=== PATIENT | male | born 1945 | race Caucasian/White ===

== ENCOUNTER 2017-09-26 14:36 | Inpatient (IN) | payer MEDICARE, OTHER, BC ==
[~2017-09-26] VITALS: Ht 165.1 cm; Wt 57.5 kg
[2017-09-26] MEDS ORDERED: LORazepam 2 MG/ML VIAL IM ONE ×2 (15:30→16:30)
[2017-09-26] MEDS ORDERED: HALOPERIDOL LACTATE 5 MG/ML AMP IM ONE (15:30)
[2017-09-26 16:13] LABS: BASOPHIL % 0.4 % (0.0-2.0); BILIRUBIN, URINE NEG (NEG); BLOOD, URINE NEG (NEG); EOSINOPHIL % 0.2 % (0.0-4.0); GLUCOSE,URINE NEG (NEG); HEMATOCRIT 39.5 % (39.0-51.0); HEMOGLOBIN 13.3 GM/DL (13.0-17.0); KETONE, URINE 10 mg/dL (NEG); LYMPH % 11.6 % (9.0-44.0); LYMPHOCYTE # 1.2 TH/MM3 (1.0-4.8); MEAN CELL VOLUME 92.2 FL (80.0-100.0); MEAN CORPUSCULAR HGB CONC 33.6 % (32.0-36.0); MEAN PLATELET VOLUME 9.1 FL (7.0-11.0); MONO % 8.5 % (0.0-8.0); MONOCYTE # 0.9 TH/MM3 (0-0.9); MUCUS URINE FEW /lpf (OCC); NEUT % 79.3 % (16.0-70.0); NITRITE,URINE NEG (NEG); PLATELET COUNT 260 TH/MM3 (150-450); RED BLOOD COUNT 4.28 MIL/MM3 (4.50-5.90); RED CELL DISTRIBUTION WIDTH 13.7 % (11.6-17.2); URINE COLOR YELLOW (YELLW/STRAW); URINE LEUKOCYTE ESTERASE NEG (NEG); WHITE BLOOD COUNT 10.1 TH/MM3 (4.0-11.0)
--- NOTE | 2017-09-26 16:13 | PD ---
HPI Chief Complaint: Psychiatric Symptoms Time Seen by Provider: 15:17 Travel History International Travel<30 days: No Contact w/Intl Traveler<30days: No Traveled to known affect area: No History of Present Illness HPI 72 year Old male presents to the emergency department under Egan act. According to law enforcement report, ""Chantal called 911 and through the conversation he stated he had 18 guns and wanted the SWAT team to respond. He then asked the dispatcher "what would happen if I start shooting out the window at them." Mr. Stewart states that if the chief would have had coffee with him none of this would not have happened."" The patient was very disruptive and uncooperative when he first arrived. He was yelling and acting out. He was a threat to himself and his other so he was restrained. The patient was given Haldol and Ativan to calm him down. I examined him after the patient was calm. He denies suicidal or homicidal ideation. He says he has no plan to hurt anybody. He denies making the statements that were side against him. He denies auditory or visual hallucinations. His symptoms were aggravated when he called the police on Saturday night and asked them to remove a gentleman from his premises, which they did. He then saw the gentleman yesterday walking around and became upset because he was not arrested and put in fpc. Onset Saturday night. Duration 2 days. No known relieving factors. Symptoms are moderate to severe in severity. Reports history of bipolar disorder. Reports history of lung cancer and lobectomy and is seen at [facility]. Reports being in remission. No known allergies. Is no emergent medical complaints at this time. Denies chest pain, shortness of breath, abdominal pain, vomiting, change in urine or stool. No other modifying factors or associated signs and symptoms. PFSH Past Medical History Medical History: Unable to Obtain ?: Unknown Past Surgical History Surgical History: Unable to Obtain Social History Alcohol Use: No Tobacco Use: No Substance Use: No Allergies-Medications (Allergen,Severity, Reaction): Coded Allergies: No Known Allergies (Unverified , 09/26/17) Review of Systems Except as stated in HPI: all other systems reviewed are Neg Physical Exam Narrative GENERAL: Well-nourished, well-developed male patient, in no acute distress SKIN: Warm and dry. HEAD: Atraumatic. Normocephalic. EYES: Pupils equal and round. ENT: Mucosa pink and moist. NECK: Supple. Trachea midline. CARDIOVASCULAR: Regular rate and rhythm. No murmur appreciated. RESPIRATORY: No accessory muscle use. Clear to auscultation. Breath sounds equal bilaterally. GASTROINTESTINAL: Abdomen soft, non-tender, nondistended. Hepatic and splenic margins not palpable. Bowel sounds are active 4 quadrants. MUSCULOSKELETAL: No obvious deformities. No clubbing. No cyanosis. No edema. NEUROLOGICAL: Awake and alert. Oriented 4. No obvious cranial nerve deficits. Motor grossly within normal limits. Normal speech. Moves all extremities. 5/5 strength to all extremities. PSYCHIATRIC: No delusional thought processes. No hallucinations. Data Data Last Documented VS Vital Signs Date Time Temp Pulse Resp B/P (MAP) Pulse Ox O2 Delivery O2 Flow Rate FiO2 09/26/17 17:15 75 16 182/92 (122) 98 Orders Orders Complete Blood Count With Diff (09/26/17 15:18) Comprehensive Metabolic Panel (09/26/17 15:18) Urinalysis - C+S If Indicated (09/26/17 15:18) Psych Screen (09/26/17 15:18) Drug Screen, Random Urine (09/26/17 15:18) Alcohol (Ethanol) (09/26/17 15:18) Salicylates (Aspirin) (09/26/17 15:18) Tylenol (Acetaminophen) (09/26/17 15:18) Haloperidol Inj (Haldol Inj) (09/26/17 15:30) Lorazepam Inj (Ativan Inj) (09/26/17 15:30) Restraints Violent (09/26/17 16:11) Lorazepam Inj (Ativan Inj) (09/26/17 16:30) Potassium Chloride (Kcl) (09/26/17 17:30) Ct Brain W/O Iv Contrast(Rout) (09/26/17 ) Labs Laboratory Tests Test 09/26/17 15:45 White Blood Count 10.1 TH/MM3 Red Blood Count 4.28 MIL/MM3 Hemoglobin 13.3 GM/DL Hematocrit 39.5 % Mean Corpuscular Volume 92.2 FL Mean Corpuscular Hemoglobin 31.0 PG Mean Corpuscular Hemoglobin Concent 33.6 % Red Cell Distribution Width 13.7 % Platelet Count 260 TH/MM3 Mean Platelet Volume 9.1 FL Neutrophils (%) (Auto) 79.3 % Lymphocytes (%) (Auto) 11.6 % Monocytes (%) (Auto) 8.5 % Eosinophils (%) (Auto) 0.2 % Basophils (%) (Auto) 0.4 % Neutrophils # (Auto) 8.0 TH/MM3 Lymphocytes # (Auto) 1.2 TH/MM3 Monocytes # (Auto) 0.9 TH/MM3 Eosinophils # (Auto) 0.0 TH/MM3 Basophils # (Auto) 0.0 TH/MM3 CBC Comment DIFF FINAL Differential Comment Urine Color YELLOW Urine Turbidity CLEAR Urine pH 5.0 Urine Specific [place] 1.022 Urine Protein TRACE mg/dL Urine Glucose (UA) NEG mg/dL Urine Ketones 10 mg/dL Urine Occult Blood NEG Urine Nitrite NEG Urine Bilirubin NEG Urine Urobilinogen LESS THAN 2.0 MG/DL Urine Leukocyte Esterase NEG Urine RBC 1 /hpf Urine WBC 1 /hpf Urine Mucus FEW /lpf Microscopic Urinalysis Comment CULT NOT INDICATED Blood Urea Nitrogen 31 MG/DL Creatinine 1.27 MG/DL Random Glucose 175 MG/DL Total Protein 7.6 GM/DL Albumin 3.9 GM/DL Calcium Level 9.2 MG/DL Alkaline Phosphatase 43 U/L Aspartate Amino Transf (AST/SGOT) 27 U/L Alanine Aminotransferase (ALT/SGPT) 21 U/L Total Bilirubin 0.8 MG/DL Sodium Level 139 MEQ/L Potassium Level 3.2 MEQ/L Chloride Level 105 MEQ/L Carbon Dioxide Level 25.4 MEQ/L Anion Gap 9 MEQ/L Estimat Glomerular Filtration Rate 56 ML/MIN Salicylates Level LESS THAN 1.7 MG/DL Urine Opiates Screen NEG Acetaminophen Level LESS THAN 2.0 MCG/ML Urine Barbiturates Screen NEG Urine Amphetamines Screen NEG Urine Benzodiazepines Screen NEG Urine Cocaine Screen NEG Urine Cannabinoids Screen POS Ethyl Alcohol Level LESS THAN 3 MG/DL [facility] Medical Decision Making Medical Screen Exam Complete: Yes Emergency Medical Condition: Yes Medical Record Reviewed: Yes Differential Diagnosis Homicidal threat, homicidal ideation, psychosis, medical clearance for psychiatric admission Narrative Course Patient presents under a Egan act. Physical examination and vital signs are essentially unremarkable. Patient has no medical complaints to report. Psych screen has been ordered. If the laboratory results are unremarkable, the patient will be medically cleared for psychiatric evaluation and disposition. 1612: Patient is out in the hallway yelling at the nurse. He's been disruptive and combative. He is a threat to himself and others. He is being uncooperative. The patient will be restrained at this time and Haldol and Ativan will be administered. Restraints ordered. 1735: Patient is restrained that and calm. The patient's medical record and he has never been seen here in [place]. I do not know if his current state of mind is normal for him. Patient is alert and oriented 4. CT head ordered to rule out acute findings. Diagnosis Primary Impression: Medical clearance for psychiatric admission Condition: Stable Gabi Andrews Sep 26, 2017 16:13
[2017-09-26 16:51] LABS: ALBUMIN 3.9 GM/DL (3.4-5.0); ALKALINE PHOSPHATASE 43 U/L (45-117); ALT (GPT) 21 U/L (12-78); AST (GOT) 27 U/L (15-37); BICARBONATE 25.4 MEQ/L (21.0-32.0); BLOOD UREA NITROGEN 31 MG/DL (7-18); CALCIUM 9.2 MG/DL (8.5-10.1); CHLORIDE 105 MEQ/L (98-107); CREATININE 1.27 MG/DL (0.60-1.30); GLOMERULAR FILTRATION RATE 56 ML/MIN (>89); GLUCOSE,RANDOM 175 MG/DL (74-106); SODIUM (NA) 139 MEQ/L (136-145); TOTAL BILIRUBIN ADULT 0.8 MG/DL (0.2-1.0); TOTAL PROTEIN 7.6 GM/DL (6.4-8.2)
[2017-09-26 16:53] LABS: ACETAMINOPHEN LESS THAN 2.0 MCG/ML (10.0-30.0)
--- NOTE | 2017-09-26 16:59 | PD ---
Data Data Orders Orders Complete Blood Count With Diff (09/26/17 15:18) Comprehensive Metabolic Panel (09/26/17 15:18) Urinalysis - C+S If Indicated (09/26/17 15:18) Psych Screen (09/26/17 15:18) Drug Screen, Random Urine (09/26/17 15:18) Alcohol (Ethanol) (09/26/17 15:18) Salicylates (Aspirin) (09/26/17 15:18) Tylenol (Acetaminophen) (09/26/17 15:18) Haloperidol Inj (Haldol Inj) (09/26/17 15:30) Lorazepam Inj (Ativan Inj) (09/26/17 15:30) Restraints Violent (09/26/17 16:11) Lorazepam Inj (Ativan Inj) (09/26/17 16:30) Labs Laboratory Tests Test 09/26/17 15:45 White Blood Count 10.1 TH/MM3 Red Blood Count 4.28 MIL/MM3 Hemoglobin 13.3 GM/DL Hematocrit 39.5 % Mean Corpuscular Volume 92.2 FL Mean Corpuscular Hemoglobin 31.0 PG Mean Corpuscular Hemoglobin Concent 33.6 % Red Cell Distribution Width 13.7 % Platelet Count 260 TH/MM3 Mean Platelet Volume 9.1 FL Neutrophils (%) (Auto) 79.3 % Lymphocytes (%) (Auto) 11.6 % Monocytes (%) (Auto) 8.5 % Eosinophils (%) (Auto) 0.2 % Basophils (%) (Auto) 0.4 % Neutrophils # (Auto) 8.0 TH/MM3 Lymphocytes # (Auto) 1.2 TH/MM3 Monocytes # (Auto) 0.9 TH/MM3 Eosinophils # (Auto) 0.0 TH/MM3 Basophils # (Auto) 0.0 TH/MM3 CBC Comment DIFF FINAL Differential Comment Urine Color YELLOW Urine Turbidity CLEAR Urine pH 5.0 Urine Specific [place] 1.022 Urine Protein TRACE mg/dL Urine Glucose (UA) NEG mg/dL Urine Ketones 10 mg/dL Urine Occult Blood NEG Urine Nitrite NEG Urine Bilirubin NEG Urine Urobilinogen LESS THAN 2.0 MG/DL Urine Leukocyte Esterase NEG Urine RBC 1 /hpf Urine WBC 1 /hpf Urine Mucus FEW /lpf Microscopic Urinalysis Comment CULT NOT INDICATED Blood Urea Nitrogen 31 MG/DL Creatinine 1.27 MG/DL Random Glucose 175 MG/DL Total Protein 7.6 GM/DL Albumin 3.9 GM/DL Calcium Level 9.2 MG/DL Alkaline Phosphatase 43 U/L Aspartate Amino Transf (AST/SGOT) 27 U/L Alanine Aminotransferase (ALT/SGPT) 21 U/L Total Bilirubin 0.8 MG/DL Sodium Level 139 MEQ/L Potassium Level 3.2 MEQ/L Chloride Level 105 MEQ/L Carbon Dioxide Level 25.4 MEQ/L Anion Gap 9 MEQ/L Estimat Glomerular Filtration Rate 56 ML/MIN Salicylates Level LESS THAN 1.7 MG/DL Urine Opiates Screen NEG Acetaminophen Level LESS THAN 2.0 MCG/ML Urine Barbiturates Screen NEG Urine Amphetamines Screen NEG Urine Benzodiazepines Screen NEG Urine Cocaine Screen NEG Urine Cannabinoids Screen POS Ethyl Alcohol Level LESS THAN 3 MG/DL MDM Supervised Visit with DYLAN: Yes Narrative Course The history, exam, and medical decision-making in the associated midlevel provider note were completed with my assistance. I reviewed and agree with the findings presented. I attest that I had a [id number] encounter with the patient on the same day, and personally performed and documented my assessment and findings in the medical record. *My assessment and Findings: This is a 72-year-old male who presents to the emergency department disorganized, manic, under a Egan act. Patient was combative with staff, unable to be verbally de-escalate and ultimately required restraints and IM chemical sedation. Patient will be evaluated by psychiatry. Neida Hurd MD Sep 26, 2017 16:59
[2017-09-26 17:15] VITALS: BP 182/92; PULSE 75; RESP 16; O2SAT 98
[2017-09-26] MEDS ORDERED: POTASSIUM CHLORIDE 20 MEQ CONTROLLED RELEASE TAB PO ONE (17:30)
--- NOTE | 2017-09-26 19:21 | RADRPT ---
EXAM DATE/TIME: 09/26/2017 19:07 [place] COMPARISON: No previous studies available for comparison. INDICATIONS : Altered mental status. RADIATION DOSE: 56.35 CTDIvol (mGy) MEDICAL HISTORY : None SURGICAL HISTORY : None. ENCOUNTER: Initial ACUITY: 1 day PAIN SCALE: 0/10 LOCATION: cranial TECHNIQUE: Multiple contiguous axial images were obtained of the head. Using automated exposure control and adj ustment of the mA and/or kV according to patient size, radiation dose was kept as low as reasonably a chievable to obtain optimal diagnostic quality images. DICOM format image data is available electro nically for review and comparison. FINDINGS: CEREBRUM: The ventricles are normal for age. No evidence of midline shift, mass lesion, hemorrhage or acute in farction. No extra-axial fluid collections are seen. POSTERIOR FOSSA: The cerebellum and brainstem are intact. The 4th ventricle is midline. The cerebellopontine angle i s unremarkable. EXTRACRANIAL: The visualized portion of the orbits is intact. SKULL: The calvaria is intact. No evidence of skull fracture. CONCLUSION: No acute disease. Negro Guzmán MD on September 26, 2017 at 19:16 Board Certified Radiologist. This report was verified electronically.
[2017-09-26 19:32] VITALS: TEMP 98
--- NOTE | 2017-09-26 19:33 | PD ---
Physical Exam Date Seen by Provider: Sep 26, 2017 Time Seen by Provider: 19:28 Narrative For full history and physical examination please see previous provider's notes. I assumed care of this patient at change of shift, at that time we are waiting for the CT of the brain to result. Data Data Last Documented VS Vital Signs Date Time Temp Pulse Resp B/P (MAP) Pulse Ox O2 Delivery O2 Flow Rate FiO2 09/26/17 17:15 75 16 182/92 (122) 98 Orders Orders Complete Blood Count With Diff (09/26/17 15:18) Comprehensive Metabolic Panel (09/26/17 15:18) Urinalysis - C+S If Indicated (09/26/17 15:18) Psych Screen (09/26/17 15:18) Drug Screen, Random Urine (09/26/17 15:18) Alcohol (Ethanol) (09/26/17 15:18) Salicylates (Aspirin) (09/26/17 15:18) Tylenol (Acetaminophen) (09/26/17 15:18) Haloperidol Inj (Haldol Inj) (09/26/17 15:30) Lorazepam Inj (Ativan Inj) (09/26/17 15:30) Restraints Violent (09/26/17 16:11) Lorazepam Inj (Ativan Inj) (09/26/17 16:30) Potassium Chloride (Kcl) (09/26/17 17:30) Ct Brain W/O Iv Contrast(Rout) (09/26/17 ) Labs Laboratory Tests Test 09/26/17 15:45 White Blood Count 10.1 TH/MM3 Red Blood Count 4.28 MIL/MM3 Hemoglobin 13.3 GM/DL Hematocrit 39.5 % Mean Corpuscular Volume 92.2 FL Mean Corpuscular Hemoglobin 31.0 PG Mean Corpuscular Hemoglobin Concent 33.6 % Red Cell Distribution Width 13.7 % Platelet Count 260 TH/MM3 Mean Platelet Volume 9.1 FL Neutrophils (%) (Auto) 79.3 % Lymphocytes (%) (Auto) 11.6 % Monocytes (%) (Auto) 8.5 % Eosinophils (%) (Auto) 0.2 % Basophils (%) (Auto) 0.4 % Neutrophils # (Auto) 8.0 TH/MM3 Lymphocytes # (Auto) 1.2 TH/MM3 Monocytes # (Auto) 0.9 TH/MM3 Eosinophils # (Auto) 0.0 TH/MM3 Basophils # (Auto) 0.0 TH/MM3 CBC Comment DIFF FINAL Differential Comment Urine Color YELLOW Urine Turbidity CLEAR Urine pH 5.0 Urine Specific [place] 1.022 Urine Protein TRACE mg/dL Urine Glucose (UA) NEG mg/dL Urine Ketones 10 mg/dL Urine Occult Blood NEG Urine Nitrite NEG Urine Bilirubin NEG Urine Urobilinogen LESS THAN 2.0 MG/DL Urine Leukocyte Esterase NEG Urine RBC 1 /hpf Urine WBC 1 /hpf Urine Mucus FEW /lpf Microscopic Urinalysis Comment CULT NOT INDICATED Blood Urea Nitrogen 31 MG/DL Creatinine 1.27 MG/DL Random Glucose 175 MG/DL Total Protein 7.6 GM/DL Albumin 3.9 GM/DL Calcium Level 9.2 MG/DL Alkaline Phosphatase 43 U/L Aspartate Amino Transf (AST/SGOT) 27 U/L Alanine Aminotransferase (ALT/SGPT) 21 U/L Total Bilirubin 0.8 MG/DL Sodium Level 139 MEQ/L Potassium Level 3.2 MEQ/L Chloride Level 105 MEQ/L Carbon Dioxide Level 25.4 MEQ/L Anion Gap 9 MEQ/L Estimat Glomerular Filtration Rate 56 ML/MIN Salicylates Level LESS THAN 1.7 MG/DL Urine Opiates Screen NEG Acetaminophen Level LESS THAN 2.0 MCG/ML Urine Barbiturates Screen NEG Urine Amphetamines Screen NEG Urine Benzodiazepines Screen NEG Urine Cocaine Screen NEG Urine Cannabinoids Screen POS Ethyl Alcohol Level LESS THAN 3 MG/DL [facility] Medical Record Reviewed: Yes Supervised Visit with DYLAN: No Interpretation(s) Laboratory Tests Test 09/26/17 15:45 White Blood Count 10.1 TH/MM3 Red Blood Count 4.28 MIL/MM3 Hemoglobin 13.3 GM/DL Hematocrit 39.5 % Mean Corpuscular Volume 92.2 FL Mean Corpuscular Hemoglobin 31.0 PG Mean Corpuscular Hemoglobin Concent 33.6 % Red Cell Distribution Width 13.7 % Platelet Count 260 TH/MM3 Mean Platelet Volume 9.1 FL Neutrophils (%) (Auto) 79.3 % Lymphocytes (%) (Auto) 11.6 % Monocytes (%) (Auto) 8.5 % Eosinophils (%) (Auto) 0.2 % Basophils (%) (Auto) 0.4 % Neutrophils # (Auto) 8.0 TH/MM3 Lymphocytes # (Auto) 1.2 TH/MM3 Monocytes # (Auto) 0.9 TH/MM3 Eosinophils # (Auto) 0.0 TH/MM3 Basophils # (Auto) 0.0 TH/MM3 CBC Comment DIFF FINAL Differential Comment Urine Color YELLOW Urine Turbidity CLEAR Urine pH 5.0 Urine Specific [place] 1.022 Urine Protein TRACE mg/dL Urine Glucose (UA) NEG mg/dL Urine Ketones 10 mg/dL Urine Occult Blood NEG Urine Nitrite NEG Urine Bilirubin NEG Urine Urobilinogen LESS THAN 2.0 MG/DL Urine Leukocyte Esterase NEG Urine RBC 1 /hpf Urine WBC 1 /hpf Urine Mucus FEW /lpf Microscopic Urinalysis Comment CULT NOT INDICATED Blood Urea Nitrogen 31 MG/DL Creatinine 1.27 MG/DL Random Glucose 175 MG/DL Total Protein 7.6 GM/DL Albumin 3.9 GM/DL Calcium Level 9.2 MG/DL Alkaline Phosphatase 43 U/L Aspartate Amino Transf (AST/SGOT) 27 U/L Alanine Aminotransferase (ALT/SGPT) 21 U/L Total Bilirubin 0.8 MG/DL Sodium Level 139 MEQ/L Potassium Level 3.2 MEQ/L Chloride Level 105 MEQ/L Carbon Dioxide Level 25.4 MEQ/L Anion Gap 9 MEQ/L Estimat Glomerular Filtration Rate 56 ML/MIN Salicylates Level LESS THAN 1.7 MG/DL Urine Opiates Screen NEG Acetaminophen Level LESS THAN 2.0 MCG/ML Urine Barbiturates Screen NEG Urine Amphetamines Screen NEG Urine Benzodiazepines Screen NEG Urine Cocaine Screen NEG Urine Cannabinoids Screen POS Ethyl Alcohol Level LESS THAN 3 MG/DL Vital Signs Date Time Temp Pulse Resp B/P (MAP) Pulse Ox O2 Delivery O2 Flow Rate FiO2 09/26/17 17:15 75 16 182/92 ([address] 09/26/17 0000 Signed Impressions: Service Date/Time: September 19:07 - CONCLUSION: No acute disease. Negro Guzmán MD Narrative Course CT scan of the brain is negative for acute abnormality. Temp assessed at 98.0. Patient is resting comfortably, he requested water. Patient is medically cleared for psychiatric evaluation. Diagnosis Primary Impression: Medical clearance for psychiatric admission Condition: Stable Gege Barrett Danielle JONES Sep 26, 2017 19:33
[2017-09-26] MEDS ORDERED: ASPI-516 CHEW (20:37)
[2017-09-26] MEDS ORDERED: AMLO2.5T PO (20:44)
[2017-09-26] MEDS ORDERED: CHLO25TA2 PO (20:44)
[2017-09-26] MEDS ORDERED: EZET1TAB8 PO (20:44)
[2017-09-26] MEDS ORDERED: ROSU10 PO (20:44)
[2017-09-26] MEDS ORDERED: LATA0.002 EACH EYE (20:50)
[2017-09-26] MEDS ORDERED: BENI40TA29 PO (20:50)
[2017-09-26 21:41] VITALS: BP 153/71; PULSE 61; RESP 14; O2SAT 99
[2017-09-26] MEDS ORDERED: amLODIPine BESYLATE 5 MG TAB PO SCH (21:45)
[2017-09-26] MEDS ORDERED: LORazepam 2 MG/ML VIAL - age > 65 yrs IM PRN (21:45)
[2017-09-26] MEDS ORDERED: ACETAMINOPHEN 325 MG TAB PO PRN (21:45)
[2017-09-26] MEDS ORDERED: ALUMINUM/MAGNESIUM/SIMETH 30 ML CUP PO PRN (21:45)
[2017-09-26] MEDS ORDERED: MAGNESIUM HYDROXIDE SUSP 30 ML CUP PO PRN (21:45)
[2017-09-26] MEDS ORDERED: EZETIMIBE 10 MG TAB PO SCH (21:47)
[2017-09-26] MEDS ORDERED: CHLORTHALIDONE 50 MG TAB PO SCH (21:48)
[2017-09-26] MEDS ORDERED: LOSARTAN 50 MG TAB PO SCH (21:56)
[2017-09-26] MEDS ORDERED: LATANOPROST 0.005% OPHT SOLN 2.5 ML BTL EACH EYE SCH (21:57)
[2017-09-26] MEDS ORDERED: PILL SPLITTER OTHER PRN (22:00)
[2017-09-26 22:40] VITALS: BP 143/77; PULSE 63; RESP 18; TEMP 98.2; O2SAT 99
[2017-09-27 06:03] VITALS: BP 104/53; PULSE 63; RESP 18; TEMP 97.6; O2SAT 98
[2017-09-27] MEDS ORDERED: ASPIRIN 81 MG CHEW TAB PO SCH (09:00)
[2017-09-27] MEDS ORDERED: ATORVASTATIN 20 MG TAB PO SCH ×2 (09:00→13:00)
[2017-09-27] MEDS ORDERED: MAGNESIUM HYDROXIDE SUSP 30 ML CUP PO PRN (12:00)
[2017-09-27] MEDS ORDERED: ALUMINUM/MAGNESIUM/SIMETH 30 ML CUP PO PRN (12:00)
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
--- NOTE | 2017-09-27 17:09 | HHI.PR ---
Addendum to Inpatient Note Additional Information We attempted to see patient this afternoon. Another gentleman was interviewing this patient and thus we did not get to see this patient. We reviewed this patient's chart. K+ 3.2 and was replaced. Creatinine 1.27 and Blood glucose was 175. We recommend encouraging patient to keep himself well hydrated. AM labs can be obtained on 09/28/2017 or 09/29/2017 and HgA1c can also be obtained. We will plan on seeing patient on 09/28/2017. Kb Carlisle DO Sep 27, 2017 17:08
[2017-09-27] MEDS ORDERED: ROSU10 PO (17:34)
[2017-09-27] MEDS ORDERED: CHLO25TA2 PO (17:36)
[2017-09-27] MEDS ORDERED: CO Q100C9 PO (17:38)
[2017-09-27] MEDS ORDERED: AZEL1SPR2 EACH NARE (17:39)
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
[2017-09-27 18:00] VITALS: BP 160/72; PULSE 67; RESP 18; TEMP 98; O2SAT 96
[2017-09-27] MEDS: LATANOPROST 0.005% OPHT SOLN 2.5 ML BTL EACH EYE SCH (21:00)
[2017-09-27] MEDS ORDERED: COENZYME Q10 300 MG PO SCH (21:00)
[2017-09-27] MEDS ORDERED: CHLORTHALIDONE 50 MG TAB PO SCH (21:00)
[2017-09-27] MEDS ORDERED: AZELASTINE NASAL SCH (21:00)
[2017-09-27] MEDS ORDERED: CHLORTHALIDONE 12.5 MG PO SCH (21:00)
[2017-09-27] MEDS: amLODIPine BESYLATE 5 MG TAB PO SCH (21:19)
[2017-09-27] MEDS: EZETIMIBE 10 MG TAB PO SCH (21:19)
[2017-09-27] MEDS: ATORVASTATIN 20 MG TAB PO SCH (21:20)
[2017-09-27] MEDS: LOSARTAN 50 MG TAB PO SCH (21:20)
[2017-09-28 06:33] VITALS: BP 121/57; PULSE 64; RESP 18; TEMP 97.5; O2SAT 100
[2017-09-28] MEDS: ASPIRIN 81 MG CHEW TAB CHEW SCH (08:27)
[2017-09-28] MEDS: CHLORTHALIDONE 50 MG TAB PO SCH (08:27)
[2017-09-28] MEDS ORDERED: ATORVASTATIN 20 MG TAB PO SCH (09:00)
[2017-09-28 09:11] LABS: BICARBONATE 31.2 MEQ/L (21.0-32.0); CALCIUM 10.2 MG/DL (8.5-10.1); CREATININE 1.07 MG/DL (0.60-1.30)
--- NOTE | 2017-09-28 15:17 | EKG ---
Date Performed: 09/27/2017 Time Performed: 13:14:11 PTAGE: 72 years EKG: Sinus rhythm WITH VENTRICULAR TRIGEMINY AXIS IS VERTICAL BORDERLINE ECG NO PREVIOUS TRACING DOCTOR: Andry Jeffers Interpretating Date/Time 09/28/2017 15:16:52
[2017-09-28 17:00] VITALS: BP 146/86; PULSE 68; RESP 18; TEMP 98.6; O2SAT 100
--- NOTE | 2017-09-28 18:19 | HHI.PYPN ---
Subjective Chief Complaint: patient manic with increased aggressive behavior at home confrontation with Remarks Is a request for second opinion. Admission note was reviewed and I agree with its contents. Patient was seen and case was discussed with nursing. Patient shows multiple symptoms of marla today. He is grandiose, pressured, flight of ideas, intrusive, perseverative, distractible. EKG was reviewed and QTC is 385. Mental Status Examination Appearance: Appropriate Consciousness: Alert Orientation: x4 Motor Activity: Normal gait Speech: Pressured, Rapid Language: Adequate Fund of Knowledge: Adequate Attention and Concentration: Adequate Memory: Unremarkable Mood: Irritable, Manic Affect: Other (increased range and intensity) Thought Process & Associations: Loose associations Thought Content: Other (disorganized) Hallucination Type: None (denies) Delusion Type: Other (grandiose) Suicidal Ideation: No (deny) Suicidal Plan: No Suicidal Intention: No Homicidal Ideation: No (denies) Homicidal Plan: No Homicidal Intention: No Insight: Poor Judgment: Poor Results Labs Test 09/28/17 07:25 Blood Urea Nitrogen 22 MG/DL Creatinine 1.07 MG/DL Random Glucose 100 MG/DL Calcium Level 10.2 MG/DL Sodium Level 139 MEQ/L Potassium Level 4.0 MEQ/L Chloride Level 102 MEQ/L Carbon Dioxide Level 31.2 MEQ/L Anion Gap 6 MEQ/L Estimat Glomerular Filtration Rate 68 ML/MIN Vitals/IOs Vital Signs Date Time Temp Pulse Resp B/P (MAP) Pulse Ox O2 Delivery O2 Flow Rate FiO2 09/28/17 17:00 98.6 68 18 146/86 (106) 100 09/26/17 21:41 Room Air Intake and Output 09/28/17 09/28/17 09/29/17 08:00 16:00 00:00 Intake Total 240 ml 240 ml 240 ml Balance 240 ml 240 ml 240 ml Assessment & Plan Problem List: (1) Marijuana abuse ICD Codes: F12.10 - Cannabis abuse, uncomplicated (2) Bipolar disorder, most recent episode manic ICD Codes: F31.10 - Bipolar disorder, current episode manic without psychotic features, unspecified Assessment & Plan I agree with first opinion to continue petition. Criteria include acute marla. Patient is agreeable to start medication. We will start Geodon 20 mg by mouth twice a day with food Justification for Cont. Inpt. Patient would decompensate in a less restrictive setting Request HC Surrog/Guard Advoc?: No Paulino Kendrick DO Sep 28, 2017 18:19
[2017-09-28] MEDS: LOSARTAN 50 MG TAB PO SCH (20:37)
[2017-09-28] MEDS: ZIPRASIDONE HCL 20 MG CAP PO SCH (20:37)
[2017-09-28] MEDS: EZETIMIBE 10 MG TAB PO SCH (20:37)
[2017-09-28] MEDS: amLODIPine BESYLATE 5 MG TAB PO SCH (20:37)
[2017-09-28] MEDS: LATANOPROST 0.005% OPHT SOLN 2.5 ML BTL EACH EYE SCH (21:00)
[2017-09-28] MEDS: diphenhydrAMINE HCL 50 MG CAP PO PRN (23:34)
[2017-09-29 06:00] VITALS: BP 126/62; PULSE 65; RESP 17; TEMP 97.4; O2SAT 100
[2017-09-29] MEDS: CHLORTHALIDONE 50 MG TAB PO SCH (08:26)
[2017-09-29] MEDS: ZIPRASIDONE HCL 20 MG CAP PO SCH ×2 (08:26→21:18)
[2017-09-29] MEDS: ASPIRIN 81 MG CHEW TAB CHEW SCH (08:26)
--- NOTE | 2017-09-29 13:36 | HHI.PR ---
Subjective Remarks Follow-up visit HTN, HLD, glaucoma. Patient seen and examined today laying In bed. Reports he is doing well. Concerned about his lipid profile. Discuss with patient he is already on medication Crestor switch over to atorvastatin while he is admitted to psychiatry unit. Continuous medications at home. Concerned about his appointment on the sixth. Discuss with patient that if he is going to be discharged by psychiatry M.D. that he can follow-up with me or he can reschedule that appointment. Denies chest pain, palpitations. Denies any headaches, fevers, chills, nausea, vomiting. Denies any pain or discomfort. No shortness of breath dyspnea. Objective Vitals Vital Signs Date Time Temp Pulse Resp B/P (MAP) Pulse Ox O2 Delivery O2 Flow Rate FiO2 09/29/17 06:00 97.4 65 17 126/62 (83) 100 09/28/17 17:00 98.6 68 18 146/86 (106) 100 I/O 09/28/17 09/28/17 09/28/17 09/29/17 09/29/17 09/29/17 07:00 15:00 23:00 07:00 15:00 23:00 Intake Total 0 ml 480 ml 840 ml Balance 0 ml 480 ml 840 ml Intake Oral 0 ml 480 ml 840 ml # Voids 2 1 3 Result Diagram: 09/26/17 1545 09/28/17 0725 Imaging Last Impressions Head CT 09/26/17 0000 Signed Impressions: Service Date/Time: September 19:07 - CONCLUSION: No acute disease. Negro Guzmán MD Objective Remarks GENERAL: This is a well-nourished, well-developed patient, in no apparent distress. SKIN: Cool and dry. HEAD: No temporal or scalp tenderness. EYES: Pupils equal round and reactive. Extraocular motions intact. No scleral icterus. No injection or drainage. ENT: Nose without bleeding. Throat without erythema. Uvula midline. Airway patent. NECK: Trachea midline. CARDIOVASCULAR: Regular rate and rhythm without murmurs, gallops, or rubs. RESPIRATORY: No wheezes, rales, or rhonchi. GASTROINTESTINAL: Abdomen soft, non-tender, nondistended. MUSCULOSKELETAL: Extremities without clubbing, cyanosis, or edema. NEUROLOGICAL: Awake and alert. Hyperverbal. Motor and sensory grossly within normal limits. Normal speech. A/P Problem List: (1) Bipolar disorder, most recent episode manic ICD Code: F31.10 - Bipolar disorder, current episode manic without psychotic features, unspecified Assessment and Plan Patient is a 72-year-old male with primary medical history of HTN, HLD, glaucoma came into the hospital under [place] act for threatening behavior. As per review of records, low enforcement reports "Chantal called 911 and through the conversation he stated he had 18 guns and wanted the SWAT team to respond. He then asked the dispatcher "what would happen if I start shooting out the window at them." Mr. Stewart states that if the chief would have had coffee with him none of this would not have happened." Patient is now admitted to inpatient psychiatry unit for further evaluation. Consulted for medical management. Bipolar disorder - Managed by psychiatry team - Hyperverbal, very conversant. Patient insists to take his phone number so that he can develop a provider patient relationship through text Messages. Hypertension Hyperlipidemia - Continue home medication aspirin 81 mg daily, Crestor 10 mg 3 times a week with CoQ10 enzyme daily (Atorvastatin 20mg daily), chlorthalidone 12.5 daily at bedtime, losartan 100 mg daily at bedtime, Zetia 10 mg daily at bedtime, amlodipine 2.5 mg daily at bedtime ( most of his meds have been converted for inpatient use) - states uses Crestor 3 times a week with CoQ10 enzymes to prevent him from having muscle weakness - Possible CKD, enc fluid hydration - Monitor BP trend Glaucoma - Continue eyedrops from home Hypokalemia 3.2. Replaced in ED, Repeat labs potassium 4.0 - Resolved DVT prop ambulatory Stable from Hospitalist standpoint. We will sign off. Reconsult as needed. Ray Aguilera Sep 29, 2017 13:36
--- NOTE | 2017-09-29 16:17 | HHI.PYPN ---
Subjective Chief Complaint: patient manic with increased aggressive behavior at home confrontation with Remarks Patient was seen and case discussed with nursing. Patient is started his Geodon and is tolerating it quite well. This time, there is little improvement patient remains very manic. He is pressured, hyperverbal, intrusive, and very grandiose. Asking about interactions between Geodon and the 2-3 joints he plans to smoke everyday area denies suicidal or homicidal ideation intent or plan. Denies auditory visual hallucinations Mental Status Examination Appearance: Appropriate Consciousness: Alert Orientation: x4 Motor Activity: Normal gait Speech: Pressured, Rapid Language: Adequate Fund of Knowledge: Adequate Attention and Concentration: Adequate Memory: Unremarkable Mood: Manic Affect: Labile, Other (increased range and intensity) Thought Process & Associations: Other (flight of ideas) Thought Content: Racing thoughts Hallucination Type: None (denies) Delusion Type: Other (grandiose) Suicidal Ideation: No (deny) Suicidal Plan: No Suicidal Intention: No Homicidal Ideation: No (denies) Homicidal Plan: No Homicidal Intention: No Insight: Poor Judgment: Poor Results Vitals/IOs Vital Signs Date Time Temp Pulse Resp B/P (MAP) Pulse Ox O2 Delivery O2 Flow Rate FiO2 09/29/17 06:00 97.4 65 17 126/62 (83) 100 09/26/17 21:41 Room Air Assessment & Plan Problem List: (1) Marijuana abuse ICD Codes: F12.10 - Cannabis abuse, uncomplicated (2) Bipolar disorder, most recent episode manic ICD Codes: F31.10 - Bipolar disorder, current episode manic without psychotic features, unspecified Assessment & Plan Consider increasing Geodon tomorrow Justification for Cont. Inpt. Patient will decompensate in a less restrictive setting Request HC Surrog/Guard Advoc?: No Paulino Kendrick DO Sep 29, 2017 16:17
[2017-09-29 18:40] VITALS: BP 111/58; PULSE 63; RESP 16; TEMP 98; O2SAT 98
[2017-09-29] MEDS: LATANOPROST 0.005% OPHT SOLN 2.5 ML BTL EACH EYE SCH (21:17)
[2017-09-29] MEDS: amLODIPine BESYLATE 5 MG TAB PO SCH (21:18)
[2017-09-29] MEDS: EZETIMIBE 10 MG TAB PO SCH (21:18)
[2017-09-29] MEDS: LOSARTAN 50 MG TAB PO SCH (21:18)
[2017-09-29] MEDS: diphenhydrAMINE HCL 50 MG CAP PO PRN (22:39)
[2017-09-30 06:56] LABS: CHOLESTEROL/ HDL RATIO 1.97 RATIO; HDL CHOLESTEROL 55.8 MG/DL (40.0-60.0)
[2017-09-30] MEDS: CHLORTHALIDONE 50 MG TAB PO SCH (08:37)
[2017-09-30] MEDS: ZIPRASIDONE HCL 20 MG CAP PO SCH (08:37)
[2017-09-30] MEDS: ASPIRIN 81 MG CHEW TAB CHEW SCH (08:38)
--- NOTE | 2017-09-30 16:14 | HHI.PYPN ---
Subjective Chief Complaint: patient manic with increased aggressive behavior at home confrontation with Remarks Patient seen in day room with nurse Vivek, nurse practitioner Betzaida, and medical student Adithya, patient compliant medications. Patient continues with rapid pressured speech is intrusive getting into her purse, markedly grandiose. Now only averaging complements on the department hours staff the other patient's. Will increase Geodon to 20 mg a.m. 40 mg p.m. Review of Systems Except as stated in HPI: all other systems reviewed are Neg Mental Status Examination Appearance: Appropriate Consciousness: Alert Orientation: x4 Motor Activity: Normal gait Speech: Pressured, Rapid Language: Adequate Fund of Knowledge: Adequate Attention and Concentration: Adequate Memory: Unremarkable Mood: Manic Affect: Labile, Other (increased range and intensity) Thought Process & Associations: Other (flight of ideas) Thought Content: Racing thoughts Hallucination Type: None (denies) Delusion Type: Other (grandiose) Suicidal Ideation: No (deny) Suicidal Plan: No Suicidal Intention: No Homicidal Ideation: No (denies) Homicidal Plan: No Homicidal Intention: No Insight: Poor Judgment: Poor Results Labs Test 09/30/17 05:07 Triglycerides Level 89 MG/DL Cholesterol Level 110 MG/DL LDL Cholesterol 36 MG/DL HDL Cholesterol 55.8 MG/DL Cholesterol/HDL Ratio 1.97 RATIO Vitals/IOs Vital Signs Date Time Temp Pulse Resp B/P (MAP) Pulse Ox O2 Delivery O2 Flow Rate FiO2 09/29/17 18:40 98.0 63 16 111/58 (75) 98 09/26/17 21:41 Room Air Intake and Output 09/30/17 09/30/17 10/01/17 08:00 16:00 00:00 Intake Total 550 ml 1200 ml Balance 550 ml 1200 ml Assessment & Plan Problem List: (1) Marijuana abuse ICD Codes: F12.10 - Cannabis abuse, uncomplicated (2) Bipolar disorder, most recent episode manic ICD Codes: F31.10 - Bipolar disorder, current episode manic without psychotic features, unspecified Assessment & Plan Estimated LOS: days patient continues markedly manic with rapid pressured speech she is grandiose and intrusive. She medication adjustment above Justification for Cont. Inpt. At this time patient would decompensated placed in a lower level of care Discharge Planning Probable return home with family Request HC Surrog/Guard Advoc?: No Isaiah Houston MD Sep 30, 2017 16:14
[2017-09-30 18:12] VITALS: BP 128/72; PULSE 90; RESP 18; TEMP 98; O2SAT 96
[2017-09-30] MEDS: amLODIPine BESYLATE 5 MG TAB PO SCH (21:00)
[2017-09-30] MEDS: LATANOPROST 0.005% OPHT SOLN 2.5 ML BTL EACH EYE SCH (21:00)
[2017-09-30] MEDS: ZIPRASIDONE HCL 40 MG CAP PO SCH (21:00)
[2017-09-30] MEDS: ATORVASTATIN 20 MG TAB PO SCH (21:00)
[2017-09-30] MEDS: diphenhydrAMINE HCL 50 MG CAP PO PRN (21:00)
[2017-09-30] MEDS: EZETIMIBE 10 MG TAB PO SCH (21:00)
[2017-09-30] MEDS: LOSARTAN 50 MG TAB PO SCH (21:00)
[2017-10-01 06:00] VITALS: BP 133/63; PULSE 60; RESP 18; TEMP 97.4; O2SAT 99
[2017-10-01 08:08] VITALS: BP 129/67
[2017-10-01] MEDS: ZIPRASIDONE HCL 20 MG CAP PO SCH ×2 (08:12→08:17)
[2017-10-01] MEDS: CHLORTHALIDONE 50 MG TAB PO SCH (08:12)
[2017-10-01] MEDS: ASPIRIN 81 MG CHEW TAB CHEW SCH (08:13)
[2017-10-01] MEDS: LORazepam 0.5 MG TAB age > 65 yrs PO PRN (08:13)
--- NOTE | 2017-10-01 16:29 | HHI.PYPN ---
Subjective Chief Complaint: patient manic with increased aggressive behavior at home confrontation with Remarks Patient seen in day room with nurse practitioner Betzaida, medical student Adithya, and nurse Vivek. Patient continues delusional quite manic with rapid pressured speech, intrusiveness, entitlement, and grandiosity now saying that he has to leave because he has a multimillion dollar daily needs to do. He is asking for many detailed questions related to the [place] act which I have already explained to him. He has been given also a printed copy of the effects side effects of Geodon. He shown poor compliance with medication also. Patient scheduled for [place] in 2 days Review of Systems Except as stated in HPI: all other systems reviewed are Neg Mental Status Examination Appearance: Appropriate Consciousness: Alert Orientation: x4 Motor Activity: Normal gait Speech: Pressured, Rapid Language: Adequate Fund of Knowledge: Adequate Attention and Concentration: Adequate Memory: Unremarkable Mood: Manic Affect: Labile, Other (increased range and intensity) Thought Process & Associations: Other (flight of ideas) Thought Content: Racing thoughts Hallucination Type: None (denies) Delusion Type: Other (grandiose) Suicidal Ideation: No (deny) Suicidal Plan: No Suicidal Intention: No Homicidal Ideation: No (denies) Homicidal Plan: No Homicidal Intention: No Insight: Poor Judgment: Poor Results Vitals/IOs Vital Signs Date Time Temp Pulse Resp B/P (MAP) Pulse Ox O2 Delivery O2 Flow Rate FiO2 10/01/17 08:08 129/67 (87) 10/01/17 06:00 97.4 60 18 99 Intake and Output 10/01/17 10/01/17 10/02/17 08:00 16:00 00:00 Intake Total 360 ml Balance 360 ml Assessment & Plan Problem List: (1) Marijuana abuse ICD Codes: F12.10 - Cannabis abuse, uncomplicated (2) Bipolar disorder, most recent episode manic ICD Codes: F31.10 - Bipolar disorder, current episode manic without psychotic features, unspecified Assessment & Plan Estimated LOS: days patient continues manic intrusive delusional grandiose with no insight into his disease. Now becoming somewhat noncompliant with medication Justification for Cont. Inpt. At this time patient will decompensate if placed a lower level of care Discharge Planning Placement needs to be determined Request HC Surrog/Guard Advoc?: No Isaiah Houston MD Oct 01, 2017 16:29
[2017-10-01 18:49] VITALS: BP 147/66; PULSE 89; RESP 16; TEMP 98; O2SAT 100
[2017-10-01] MEDS: ZIPRASIDONE HCL 40 MG CAP PO SCH (21:00)
[2017-10-01] MEDS: amLODIPine BESYLATE 5 MG TAB PO SCH (21:20)
[2017-10-01] MEDS: LATANOPROST 0.005% OPHT SOLN 2.5 ML BTL EACH EYE SCH (21:20)
[2017-10-01] MEDS: LOSARTAN 50 MG TAB PO SCH (21:20)
[2017-10-01] MEDS: EZETIMIBE 10 MG TAB PO SCH (21:21)
[2017-10-02 06:20] VITALS: BP 132/67; PULSE 78; RESP 20; TEMP 98.4; O2SAT 96
[2017-10-02 08:40] VITALS: BP 137/68; PULSE 95
[2017-10-02] MEDS: CHLORTHALIDONE 50 MG TAB PO SCH (08:43)
[2017-10-02] MEDS: ASPIRIN 81 MG CHEW TAB CHEW SCH (08:45)
[2017-10-02] MEDS: ZIPRASIDONE HCL 20 MG CAP PO SCH (08:45)
--- NOTE | 2017-10-02 15:55 | HHI.PYPN ---
Subjective Chief Complaint: patient manic with increased aggressive behavior at home confrontation with Remarks Patient seen in [place] with nurse practitioner Betzaida and nurse Vanessa. Patient remains markedly intrusive invasive of private space speaking almost knows to nose with me is rapid pressured speech is markedly grandiose, at times with attempts to be intimidating and threatening, stating he can make a phone call that can make it very bad for me. He is also quite intrusive into other patient's personal space. Patient has been refusing his oral Geodon. There is a conversation with the patient's was at the home in [place]. She is quite concerned about her stability. And she will be driving down here today to testify in [facility] tomorrow. At this time I feel patient does not have capacity to make appropriate decisions concerning his care thus in [facility] tomorrow I will ask for healthcare surrogate and guardian advocate. Review of Systems Except as stated in HPI: all other systems reviewed are Neg Mental Status Examination Appearance: Appropriate Consciousness: Alert Orientation: x4 Motor Activity: Normal gait Speech: Pressured, Rapid Language: Adequate Fund of Knowledge: Adequate Attention and Concentration: Adequate Memory: Unremarkable Mood: Manic Affect: Labile, Other (increased range and intensity) Thought Process & Associations: Other (flight of ideas) Thought Content: Racing thoughts Hallucination Type: None (denies) Delusion Type: Other (grandiose) Suicidal Ideation: No (deny) Suicidal Plan: No Suicidal Intention: No Homicidal Ideation: No (denies) Homicidal Plan: No Homicidal Intention: No Insight: Poor Judgment: Poor Results Vitals/IOs Vital Signs Date Time Temp Pulse Resp B/P (MAP) Pulse Ox O2 Delivery O2 Flow Rate FiO2 10/02/17 08:40 95 137/68 (91) 10/02/17 06:20 98.4 20 96 Intake and Output 10/02/17 10/02/17 10/03/17 08:00 16:00 00:00 Intake Total 1080 ml Balance 1080 ml Assessment & Plan Problem List: (1) Marijuana abuse ICD Codes: F12.10 - Cannabis abuse, uncomplicated (2) Bipolar disorder, most recent episode manic ICD Codes: F31.10 - Bipolar disorder, current episode manic without psychotic features, unspecified Assessment & Plan Estimated LOS: days patient remains severely manic psychotic grandiose with no insight. Has been noncompliant with medication Patient scheduled for [place] tomorrow Justification for Cont. Inpt. At this time patient decompensated placed in a lower level of care Discharge Planning To be determined. Request HC Surrog/Guard Advoc?: Yes Isaiah Houston MD Oct 02, 2017 15:55
[2017-10-02] MEDS: LOSARTAN 50 MG TAB PO SCH (20:32)
[2017-10-02] MEDS: EZETIMIBE 10 MG TAB PO SCH (20:33)
[2017-10-02] MEDS: amLODIPine BESYLATE 5 MG TAB PO SCH (20:33)
[2017-10-02] MEDS: ZIPRASIDONE HCL 40 MG CAP PO SCH (20:34)
[2017-10-02] MEDS: LATANOPROST 0.005% OPHT SOLN 2.5 ML BTL EACH EYE SCH (20:34)
[2017-10-02] MEDS: ATORVASTATIN 20 MG TAB PO SCH (21:22)
[2017-10-03 05:49] VITALS: BP 146/71; PULSE 66; RESP 18; TEMP 97.5; O2SAT 100
[2017-10-03] MEDS: ZIPRASIDONE HCL 20 MG CAP PO SCH (08:59)
[2017-10-03] MEDS: ASPIRIN 81 MG CHEW TAB CHEW SCH (08:59)
[2017-10-03] MEDS: CHLORTHALIDONE 50 MG TAB PO SCH (09:00)
[2017-10-03] MEDS ORDERED: ZIPRASIDONE MESYLATE 20 MG VIAL IM PRN (13:15)
--- NOTE | 2017-10-03 13:16 | HHI.PYPN ---
Subjective Chief Complaint: patient manic with increased aggressive behavior at home confrontation with Remarks Patient seen in [employer] court. Prior to patient coming to [employer] [facility] [employer] court patient's testified in [employer] court to [employer]. asked for this to be done confidentially since she was afraid of her 's reaction. Patient's gave history of multiple episodes of severe marla with increasing Margarito violent episodes with her to the point where she left him and moved to [place] with a also on a home. After left court room patient came in the room and [employer] court was continued. He was retained by [employer] with [facility] to be guardian advocate patient continues with rapid pressured speech grandiosity mild irritability and entitlement. Patient seen by me later in the day room he showed no insight into his culpability or behaviors that led to the above decision. Will adjust Geodon to 40 mg by mouth twice a day and if patient refuses he to get 10 mg Geodon IM in its place the above to be given all with permission of health care surrogate/guardian advocate Review of Systems Except as stated in HPI: all other systems reviewed are Neg Mental Status Examination Appearance: Appropriate Consciousness: Alert Orientation: x4 Motor Activity: Normal gait Speech: Pressured, Rapid Language: Adequate Fund of Knowledge: Adequate Attention and Concentration: Adequate Memory: Unremarkable Mood: Manic Affect: Labile, Other (increased range and intensity) Thought Process & Associations: Other (flight of ideas) Thought Content: Racing thoughts Hallucination Type: None (denies) Delusion Type: Other (grandiose) Suicidal Ideation: No (deny) Suicidal Plan: No Suicidal Intention: No Homicidal Ideation: No (denies) Homicidal Plan: No Homicidal Intention: No Insight: Poor Judgment: Poor Results Vitals/IOs Vital Signs Date Time Temp Pulse Resp B/P (MAP) Pulse Ox O2 Delivery O2 Flow Rate FiO2 10/03/17 05:49 97.5 66 18 146/71 (96) 100 Intake and Output 10/03/17 10/03/17 10/04/17 08:00 16:00 00:00 Intake Total 240 ml 480 ml Balance 240 ml 480 ml Assessment & Plan Problem List: (1) Marijuana abuse ICD Codes: F12.10 - Cannabis abuse, uncomplicated (2) Bipolar disorder, most recent episode manic ICD Codes: F31.10 - Bipolar disorder, current episode manic without psychotic features, unspecified Assessment & Plan Estimated LOS: days patient continues quite manic grandiose with no insight. Gela to be guardian advocate. Will increase Geodon to 40 mg by mouth twice a day and if patient refuses 10 mg IM in its place, on with permission of health care surrogate/guardian advocate Justification for Cont. Inpt. At this time patient will decompensate if placed in a lower level of care Discharge Planning Placement may remain problematic though would be willing to have him return home if he stabilizes shows cooperation compliance and insight into his need for medication and abstinence from marijuana Request HC Surrog/Guard Advoc?: Yes Isaiah Houston MD Oct 03, 2017 13:16
[2017-10-03 17:54] VITALS: BP 117/61; PULSE 64; RESP 18; TEMP 97.8; O2SAT 100
[2017-10-03] MEDS: LOSARTAN 50 MG TAB PO SCH (20:35)
[2017-10-03] MEDS: LATANOPROST 0.005% OPHT SOLN 2.5 ML BTL EACH EYE SCH (20:35)
[2017-10-03] MEDS: LORazepam 0.5 MG TAB age > 65 yrs PO PRN (20:36)
[2017-10-03] MEDS: ZIPRASIDONE HCL 40 MG CAP PO SCH (20:36)
[2017-10-03] MEDS: amLODIPine BESYLATE 5 MG TAB PO SCH (20:36)
[2017-10-03] MEDS: EZETIMIBE 10 MG TAB PO SCH (20:36)
[2017-10-04 05:00] VITALS: BP 113/72; PULSE 57; RESP 18; TEMP 97.4; O2SAT 100
[2017-10-04] MEDS: ASPIRIN 81 MG CHEW TAB CHEW SCH (09:00)
[2017-10-04] MEDS: ZIPRASIDONE HCL 40 MG CAP PO SCH ×2 (09:00→21:06)
[2017-10-04] MEDS: CHLORTHALIDONE 50 MG TAB PO SCH (09:00)
--- NOTE | 2017-10-04 12:07 | HHI.PYPN ---
Subjective Chief Complaint: patient manic with increased aggressive behavior at home confrontation with Remarks Patient seen in his room with medical student Adithya and nurse Seema, chart review, patient compliant medication. Continues with pressured speech though the rate is slightly diminished the volume is slightly diminished. He is not quite as intrusive. The grandiosity the delusions persist unchanged. For now continue treatment Review of Systems Except as stated in HPI: all other systems reviewed are Neg Mental Status Examination Appearance: Appropriate Consciousness: Alert Orientation: x4 Motor Activity: Normal gait Speech: Pressured, Rapid Language: Adequate Fund of Knowledge: Adequate Attention and Concentration: Adequate Memory: Unremarkable Mood: Manic Affect: Labile, Other (increased range and intensity) Thought Process & Associations: Other (flight of ideas) Thought Content: Racing thoughts Hallucination Type: None (denies) Delusion Type: Other (grandiose) Suicidal Ideation: No (deny) Suicidal Plan: No Suicidal Intention: No Homicidal Ideation: No (denies) Homicidal Plan: No Homicidal Intention: No Insight: Poor Judgment: Poor Results Vitals/IOs Vital Signs Date Time Temp Pulse Resp B/P (MAP) Pulse Ox O2 Delivery O2 Flow Rate FiO2 10/04/17 05:00 97.4 57 18 113/72 (86) 100 Intake and Output 10/04/17 10/04/17 10/05/17 08:00 16:00 00:00 Intake Total 0 ml 240 ml Balance 0 ml 240 ml Assessment & Plan Problem List: (1) Marijuana abuse ICD Codes: F12.10 - Cannabis abuse, uncomplicated (2) Bipolar disorder, most recent episode manic ICD Codes: F31.10 - Bipolar disorder, current episode manic without psychotic features, unspecified Assessment & Plan Estimated LOS: days patient continues manic delusional though some decrease in his grandiosity. He is now compliant with medications. Justification for Cont. Inpt. At this time patient decompensated placed on the lower level of care Discharge Planning The containers a possibility of him returning home if he shows stability of his recovery in a commitment to continue treatment as an outpatient Request HC Surrog/Guard Advoc?: Yes Isaiah Houston MD Oct 04, 2017 12:07
[2017-10-04 16:45] VITALS: BP 146/63; PULSE 74; RESP 18; TEMP 98.6; O2SAT 100
[2017-10-04] MEDS: LOSARTAN 50 MG TAB PO SCH (21:06)
[2017-10-04] MEDS: LATANOPROST 0.005% OPHT SOLN 2.5 ML BTL EACH EYE SCH (21:06)
[2017-10-04] MEDS: EZETIMIBE 10 MG TAB PO SCH (21:06)
[2017-10-04] MEDS: amLODIPine BESYLATE 5 MG TAB PO SCH (21:06)
[2017-10-04] MEDS: ATORVASTATIN 20 MG TAB PO SCH (21:07)
[2017-10-05 06:07] VITALS: BP 114/66; PULSE 75; RESP 16; TEMP 97.9; O2SAT 99
[2017-10-05 06:19] VITALS: BP 114/66; PULSE 99; RESP 16; TEMP 97.9; O2SAT 99
[2017-10-05 08:43] VITALS: BP 132/63
[2017-10-05] MEDS: CHLORTHALIDONE 50 MG TAB PO SCH (08:44)
[2017-10-05] MEDS: ASPIRIN 81 MG CHEW TAB CHEW SCH (08:44)
[2017-10-05] MEDS: ZIPRASIDONE HCL 40 MG CAP PO SCH ×2 (08:44→22:14)
--- NOTE | 2017-10-05 14:49 | HHI.PYPN ---
Subjective Chief Complaint: patient manic with increased aggressive behavior at home confrontation with Remarks Pt seen and discussed with staff. He has been cooperative with care. He remains manic but is less pressured in speech with a decrease in intrusive behaviors. He is on phone restrictions due to making threatening calls. He states that he likes "what the geodon is doing for me, but the devil is in the tweaking!" and gives advice on how to prescribe medications. No SI/HI Mental Status Examination Appearance: Appropriate Consciousness: Alert Orientation: x4 Motor Activity: Normal gait Speech: Pressured, Rapid Language: Adequate Fund of Knowledge: Adequate Attention and Concentration: Adequate Memory: Unremarkable Mood: Manic Affect: Labile, Other (increased range and intensity) Thought Process & Associations: Other (flight of ideas) Thought Content: Racing thoughts Hallucination Type: None (denies) Delusion Type: Other (grandiose) Suicidal Ideation: No Suicidal Plan: No Suicidal Intention: No Homicidal Ideation: No Homicidal Plan: No Homicidal Intention: No Insight: Poor Judgment: Poor Results Vitals/IOs Vital Signs Date Time Temp Pulse Resp B/P (MAP) Pulse Ox O2 Delivery O2 Flow Rate FiO2 10/05/17 08:43 132/63 (86) 10/05/17 06:19 97.9 99 16 99 Intake and Output 10/05/17 10/05/17 10/06/17 08:00 16:00 00:00 Intake Total 0 ml 240 ml Balance 0 ml 240 ml Assessment & Plan Problem List: (1) Bipolar disorder, most recent episode manic ICD Codes: F31.10 - Bipolar disorder, current episode manic without psychotic features, unspecified (2) Marijuana abuse ICD Codes: F12.10 - Cannabis abuse, uncomplicated Assessment & Plan Pt is improving. Continue current tx plan. Estimated LOS: days Justification for Cont. Inpt. impairments in social functioning and reality testing Request HC Surrog/Guard Advoc?: Yes Grace Mejia MD Oct 05, 2017 14:49
[2017-10-05 18:23] VITALS: BP 107/66; PULSE 66; RESP 17; TEMP 98.7; O2SAT 100
[2017-10-05] MEDS: LATANOPROST 0.005% OPHT SOLN 2.5 ML BTL EACH EYE SCH (20:42)
[2017-10-05] MEDS: amLODIPine BESYLATE 5 MG TAB PO SCH ×2 (20:46→21:00)
[2017-10-05] MEDS: LOSARTAN 50 MG TAB PO SCH (20:46)
[2017-10-05] MEDS: EZETIMIBE 10 MG TAB PO SCH (21:00)
[2017-10-05] MEDS: diphenhydrAMINE HCL 50 MG CAP PO PRN (22:15)
[2017-10-06 06:31] VITALS: BP 119/66; PULSE 54; RESP 17; TEMP 98.2
[2017-10-06 08:05] VITALS: BP 149/68
[2017-10-06] MEDS: LORazepam 0.5 MG TAB age > 65 yrs PO PRN (08:10)
[2017-10-06] MEDS: ZIPRASIDONE HCL 40 MG CAP PO SCH ×2 (08:10→20:51)
[2017-10-06] MEDS: ASPIRIN 81 MG CHEW TAB CHEW SCH (08:10)
[2017-10-06] MEDS: CHLORTHALIDONE 50 MG TAB PO SCH (08:10)
--- NOTE | 2017-10-06 16:02 | HHI.PYPN ---
Subjective Chief Complaint: patient manic with increased aggressive behavior at home confrontation with Remarks Pt seen and discussed with staff. He was given ativan X1 dose this morning due to intrusive and agitated behaviors. He has been more calm and less labile this afternoon, but remains paranoid. He attempted to bribe staff by offering "hundreds of dollars" to lift phone restriction (in place because of making inappropriate threatening calls) He hostile and irritable during interview and expresses lots of paranoid ideations. Mental Status Examination Appearance: Appropriate Consciousness: Alert Orientation: x4 Motor Activity: Normal gait Speech: Pressured, Rapid Language: Adequate Fund of Knowledge: Adequate Attention and Concentration: Adequate Memory: Unremarkable Mood: Manic Affect: Labile, Other (increased range and intensity) Thought Process & Associations: Other (flight of ideas) Thought Content: Racing thoughts Hallucination Type: None (denies) Delusion Type: Paranoid, Other (grandiose) Suicidal Ideation: No Suicidal Plan: No Suicidal Intention: No Homicidal Ideation: No Homicidal Plan: No Homicidal Intention: No Insight: Poor Judgment: Poor Results Vitals/IOs Vital Signs Date Time Temp Pulse Resp B/P (MAP) Pulse Ox O2 Delivery O2 Flow Rate FiO2 10/06/17 08:05 149/68 (95) 10/06/17 06:31 98.2 54 17 10/05/17 18:23 100 Intake and Output 10/06/17 10/06/17 10/07/17 08:00 16:00 00:00 Intake Total 0 ml Balance 0 ml Assessment & Plan Problem List: (1) Bipolar disorder, most recent episode manic ICD Codes: F31.10 - Bipolar disorder, current episode manic without psychotic features, unspecified (2) Marijuana abuse ICD Codes: F12.10 - Cannabis abuse, uncomplicated Assessment & Plan Continue current tx plan. Estimated LOS: days Justification for Cont. Inpt. impairments in social functioning and reality testing. Request HC Surrog/Guard Advoc?: Yes Grace Mejia MD Oct 06, 2017 16:02
[2017-10-06 18:00] VITALS: BP 143/104; PULSE 68; RESP 18; TEMP 98.2; O2SAT 98
[2017-10-06] MEDS: amLODIPine BESYLATE 5 MG TAB PO SCH (20:51)
[2017-10-06] MEDS: hydrOXYzine HCL 50 MG TAB PO PRN (20:51)
[2017-10-06] MEDS: diphenhydrAMINE HCL 50 MG CAP PO PRN (20:51)
[2017-10-06] MEDS: EZETIMIBE 10 MG TAB PO SCH (20:52)
[2017-10-06] MEDS: LATANOPROST 0.005% OPHT SOLN 2.5 ML BTL EACH EYE SCH (20:53)
[2017-10-06] MEDS: LOSARTAN 50 MG TAB PO SCH (20:55)
[2017-10-07 05:50] VITALS: BP 107/57; PULSE 52; TEMP 97.5; O2SAT 96
[2017-10-07] MEDS: CHLORTHALIDONE 50 MG TAB PO SCH (08:51)
[2017-10-07] MEDS: ZIPRASIDONE HCL 40 MG CAP PO SCH (08:51)
[2017-10-07] MEDS: ASPIRIN 81 MG CHEW TAB CHEW SCH (08:51)
[2017-10-07 08:57] VITALS: BP 149/64; PULSE 71
--- NOTE | 2017-10-07 15:31 | HHI.PYPN ---
Subjective Chief Complaint: patient manic with increased aggressive behavior at home confrontation with Remarks She is seen today with nurse jersey, chart reviewed, patient compliant medication. Patient was doing exercises in the middle of the [place] this afternoon. Patient continues manic with rapid pressured speech grandiosity and intrusiveness. He continues also with some intellectualization. Will increase Geodon to 60 mg twice a day. He does denies suicidality homicidality voices or visions at this time Review of Systems Except as stated in HPI: all other systems reviewed are Neg Mental Status Examination Appearance: Appropriate Consciousness: Alert Orientation: x4 Motor Activity: Normal gait Speech: Pressured, Rapid Language: Adequate Fund of Knowledge: Adequate Attention and Concentration: Adequate Memory: Unremarkable Mood: Manic Affect: Labile, Other (increased range and intensity) Thought Process & Associations: Other (flight of ideas) Thought Content: Racing thoughts Hallucination Type: None (denies) Delusion Type: Paranoid, Other (grandiose) Suicidal Ideation: No Suicidal Plan: No Suicidal Intention: No Homicidal Ideation: No Homicidal Plan: No Homicidal Intention: No Insight: Poor Judgment: Poor Results Vitals/IOs Vital Signs Date Time Temp Pulse Resp B/P (MAP) Pulse Ox O2 Delivery O2 Flow Rate FiO2 10/07/17 08:57 71 149/64 (92) 10/07/17 05:50 97.5 96 10/06/17 18:00 18 Intake and Output 10/07/17 10/07/17 10/08/17 08:00 16:00 00:00 Intake Total 480 ml 360 ml Balance 480 ml 360 ml Assessment & Plan Problem List: (1) Bipolar disorder, most recent episode manic ICD Codes: F31.10 - Bipolar disorder, current episode manic without psychotic features, unspecified (2) Marijuana abuse ICD Codes: F12.10 - Cannabis abuse, uncomplicated Assessment & Plan Estimated LOS: days she continues manic grandiose and intrusive with little insight. See medication adjustment above Justification for Cont. Inpt. At the present time patient decompensated placed in a lower level of care Discharge Planning Continue to work with family related to placement issues Request HC Surrog/Guard Advoc?: Yes Isaiah Houston MD Oct 07, 2017 15:31
[2017-10-07 18:24] VITALS: BP 119/70; PULSE 60; TEMP 97.9; O2SAT 99
[2017-10-07] MEDS: amLODIPine BESYLATE 5 MG TAB PO SCH (20:44)
[2017-10-07] MEDS: ZIPRASIDONE HCL 20 MG CAP PO SCH (20:44)
[2017-10-07] MEDS: EZETIMIBE 10 MG TAB PO SCH (20:45)
[2017-10-07] MEDS: LOSARTAN 50 MG TAB PO SCH (20:45)
[2017-10-07] MEDS: ATORVASTATIN 20 MG TAB PO SCH (20:46)
[2017-10-07] MEDS: LATANOPROST 0.005% OPHT SOLN 2.5 ML BTL EACH EYE SCH (20:50)
[2017-10-07] MEDS: diphenhydrAMINE HCL 50 MG CAP PO PRN (22:20)
[2017-10-08 06:21] VITALS: BP 119/61; PULSE 63; RESP 18; TEMP 97.8; O2SAT 97
[2017-10-08] MEDS: ZIPRASIDONE HCL 20 MG CAP PO SCH ×2 (09:17→20:19)
[2017-10-08] MEDS: ASPIRIN 81 MG CHEW TAB CHEW SCH (09:18)
[2017-10-08] MEDS: CHLORTHALIDONE 50 MG TAB PO SCH (09:18)
--- NOTE | 2017-10-08 14:03 | HHI.PYPN ---
Subjective Chief Complaint: patient manic with increased aggressive behavior at home confrontation with Remarks Patient seen in [facility] with nurse Antonia, chart review, patient compliant medications. Patient complains some poor sleep, he also acknowledges that at times the milieu is somewhat loud and disruptive. He also wishes he could get his CPAP machine. It appears his will bring it in for him to use. At this time we will refrain from any medication adjustments. We will see if the sleep apnea machine helps improve his sleep. Otherwise patient continues with rapid pressured speech and intrusiveness though not quite as intense as prior Review of Systems Except as stated in HPI: all other systems reviewed are Neg Mental Status Examination Appearance: Appropriate Consciousness: Alert Orientation: x4 Motor Activity: Normal gait Speech: Pressured, Rapid Language: Adequate Fund of Knowledge: Adequate Attention and Concentration: Adequate Memory: Unremarkable Mood: Manic Affect: Labile, Other (increased range and intensity) Thought Process & Associations: Other (flight of ideas) Thought Content: Racing thoughts Hallucination Type: None (denies) Delusion Type: Paranoid, Other (grandiose) Suicidal Ideation: No Suicidal Plan: No Suicidal Intention: No Homicidal Ideation: No Homicidal Plan: No Homicidal Intention: No Insight: Poor Judgment: Poor Results Vitals/IOs Vital Signs Date Time Temp Pulse Resp B/P (MAP) Pulse Ox O2 Delivery O2 Flow Rate FiO2 10/08/17 06:21 97.8 63 18 119/61 (80) 97 Intake and Output 10/08/17 10/08/17 10/09/17 08:00 16:00 00:00 Intake Total 960 ml 240 ml Balance 960 ml 240 ml Assessment & Plan Problem List: (1) Bipolar disorder, most recent episode manic ICD Codes: F31.10 - Bipolar disorder, current episode manic without psychotic features, unspecified (2) Marijuana abuse ICD Codes: F12.10 - Cannabis abuse, uncomplicated Assessment & Plan Estimated LOS: days patient continues manic with rapid pressured speech grandiosity though somewhat softer. It appears will bring in his Machine we'll see if that does improve his sleep Justification for Cont. Inpt. At this time patient will decompensate a placed a lower level of care Discharge Planning Placement may become somewhat problematic Request HC Surrog/Guard Advoc?: Yes Isaiah Houston MD Oct 08, 2017 14:03
[2017-10-08 17:37] VITALS: BP 135/70; PULSE 64; RESP 18; TEMP 97.7; O2SAT 100
[2017-10-08] MEDS: LOSARTAN 50 MG TAB PO SCH (20:19)
[2017-10-08] MEDS: LATANOPROST 0.005% OPHT SOLN 2.5 ML BTL EACH EYE SCH (20:19)
[2017-10-08] MEDS: EZETIMIBE 10 MG TAB PO SCH (20:20)
[2017-10-08] MEDS: amLODIPine BESYLATE 5 MG TAB PO SCH (20:20)
[2017-10-08] MEDS: diphenhydrAMINE HCL 50 MG CAP PO PRN (21:56)
[2017-10-09 05:49] VITALS: BP 111/56; PULSE 57; RESP 17; TEMP 97.4; O2SAT 99
[2017-10-09 08:29] VITALS: BP 166/69; PULSE 67
[2017-10-09] MEDS: ZIPRASIDONE HCL 20 MG CAP PO SCH ×2 (08:31→21:02)
[2017-10-09] MEDS: ASPIRIN 81 MG CHEW TAB CHEW SCH (08:32)
[2017-10-09] MEDS: CHLORTHALIDONE 50 MG TAB PO SCH (08:32)
[2017-10-09] MEDS: ACETAMINOPHEN 325 MG TAB PO PRN (10:57)
--- NOTE | 2017-10-09 11:21 | HHI.PYPN ---
Subjective Chief Complaint: patient manic with increased aggressive behavior at home confrontation with Remarks Patient seen in his room with nurse Kay, chart reviewed, patient compliant medication. Patient continues somewhat intrusive grandiose Ms. rapid pressured speech has diminished. There is less paranoia noted with them. The time she continues to attempt to be Ivan staff and caring for patients. He states he did sleep 6 hours last night is quite pleased with that. He pointed to a heavier T-shirt that he was wearing saying that kept him warmer and he slept better. He did not use the C Pap machine. It appears it has not been delivered yet for now continue treatment Review of Systems Except as stated in HPI: all other systems reviewed are Neg Mental Status Examination Appearance: Appropriate Consciousness: Alert Orientation: x4 Motor Activity: Normal gait Speech: Pressured, Rapid Language: Adequate Fund of Knowledge: Adequate Attention and Concentration: Adequate Memory: Unremarkable Mood: Manic Affect: Labile, Other (increased range and intensity) Thought Process & Associations: Other (flight of ideas) Thought Content: Racing thoughts Hallucination Type: None (denies) Delusion Type: Paranoid, Other (grandiose) Suicidal Ideation: No Suicidal Plan: No Suicidal Intention: No Homicidal Ideation: No Homicidal Plan: No Homicidal Intention: No Insight: Poor Judgment: Poor Results Vitals/IOs Vital Signs Date Time Temp Pulse Resp B/P (MAP) Pulse Ox O2 Delivery O2 Flow Rate FiO2 10/09/17 08:29 67 166/69 (101) 10/09/17 05:49 97.4 17 99 Intake and Output 10/09/17 10/09/17 10/10/17 08:00 16:00 00:00 Intake Total 120 ml 480 ml Balance 120 ml 480 ml Assessment & Plan Problem List: (1) Bipolar disorder, most recent episode manic ICD Codes: F31.10 - Bipolar disorder, current episode manic without psychotic features, unspecified (2) Marijuana abuse ICD Codes: F12.10 - Cannabis abuse, uncomplicated Assessment & Plan Estimated LOS: days patient continues bipolar manic for somewhat softer. The grandiosity and intrusiveness continue. Patient compliant medication Justification for Cont. Inpt. At this time patient will decompensate her placed in a lower level of care Discharge Planning Continue to work with patient's related to placement issues Request HC Surrog/Guard Advoc?: Yes Isaiah Houston MD Oct 09, 2017 11:21
[2017-10-09 18:24] VITALS: BP 118/72; PULSE 58; RESP 18; TEMP 97.8
[2017-10-09] MEDS: LATANOPROST 0.005% OPHT SOLN 2.5 ML BTL EACH EYE SCH (21:00)
[2017-10-09] MEDS: LOSARTAN 50 MG TAB PO SCH (21:03)
[2017-10-09] MEDS: amLODIPine BESYLATE 5 MG TAB PO SCH (21:04)
[2017-10-09] MEDS: ATORVASTATIN 20 MG TAB PO SCH (21:12)
[2017-10-09] MEDS: EZETIMIBE 10 MG TAB PO SCH (21:13)
[2017-10-09] MEDS: diphenhydrAMINE HCL 50 MG CAP PO PRN (21:40)
[2017-10-10] MEDS: hydrOXYzine HCL 50 MG TAB PO PRN (00:17)
[2017-10-10 06:40] VITALS: BP 140/62; PULSE 67; RESP 18; TEMP 97.1; O2SAT 98
[2017-10-10 08:35] VITALS: BP 151/70
[2017-10-10] MEDS: ASPIRIN 81 MG CHEW TAB CHEW SCH (08:39)
[2017-10-10] MEDS: ZIPRASIDONE HCL 20 MG CAP PO SCH ×2 (08:40→21:27)
[2017-10-10] MEDS: CHLORTHALIDONE 50 MG TAB PO SCH (08:40)
--- NOTE | 2017-10-10 14:41 | HHI.PYPN ---
Subjective Chief Complaint: patient manic with increased aggressive behavior at home confrontation with Remarks Patient seen in [facility] with medical student Adithya, chart review, discussed with nurse. Patient continues intrusive grandiose with little significant insight. 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 Any contradicts himself and says he never wants to see his again. Is also confused about placement options though at one time he said he be willing to go to when [facility]. Continue to work on placement issues consider adjustment of medications tomorrow Review of Systems Except as stated in HPI: all other systems reviewed are Neg Mental Status Examination Appearance: Appropriate Consciousness: Alert Orientation: x4 Motor Activity: Normal gait Speech: Pressured, Rapid Language: Adequate Fund of Knowledge: Adequate Attention and Concentration: Adequate Memory: Unremarkable Mood: Manic Affect: Labile, Other (increased range and intensity) Thought Process & Associations: Other (flight of ideas) Thought Content: Racing thoughts Hallucination Type: None (denies) Delusion Type: Paranoid, Other (grandiose) Suicidal Ideation: No Suicidal Plan: No Suicidal Intention: No Homicidal Ideation: No Homicidal Plan: No Homicidal Intention: No Insight: Poor Judgment: Poor Results Vitals/IOs Vital Signs Date Time Temp Pulse Resp B/P (MAP) Pulse Ox O2 Delivery O2 Flow Rate FiO2 10/10/17 08:35 151/70 (97) 10/10/17 06:40 97.1 67 18 98 Assessment & Plan Problem List: (1) Bipolar disorder, most recent episode manic ICD Codes: F31.10 - Bipolar disorder, current episode manic without psychotic features, unspecified (2) Marijuana abuse ICD Codes: F12.10 - Cannabis abuse, uncomplicated Assessment & Plan Estimated LOS: days patient continues somewhat manic intrusive grandiose with pressured speech. Still little significant insight Justification for Cont. Inpt. This time patient will decompensate and placed in a lower level of care Discharge Planning Placement may become problematic Request HC Surrog/Guard Advoc?: Yes Isaiah Houston MD Oct 10, 2017 14:41
[2017-10-10 17:45] VITALS: BP 130/63; PULSE 67; RESP 18; TEMP 97.7; O2SAT 98
[2017-10-10] MEDS: LOSARTAN 50 MG TAB PO SCH (21:27)
[2017-10-10] MEDS: LATANOPROST 0.005% OPHT SOLN 2.5 ML BTL EACH EYE SCH (21:27)
[2017-10-10] MEDS: amLODIPine BESYLATE 5 MG TAB PO SCH (21:27)
[2017-10-10] MEDS: EZETIMIBE 10 MG TAB PO SCH (21:27)
[2017-10-10] MEDS: diphenhydrAMINE HCL 50 MG CAP PO PRN (22:55)
[2017-10-11 06:10] VITALS: BP 114/75; PULSE 61; TEMP 98
[2017-10-11] MEDS: ZIPRASIDONE HCL 20 MG CAP PO SCH (08:44)
[2017-10-11] MEDS: ASPIRIN 81 MG CHEW TAB CHEW SCH (08:45)
[2017-10-11] MEDS: CHLORTHALIDONE 50 MG TAB PO SCH (08:45)
[2017-10-11] MEDS: ACETAMINOPHEN 325 MG TAB PO PRN (13:45)
--- NOTE | 2017-10-11 15:03 | HHI.PYPN ---
Subjective Chief Complaint: patient manic with increased aggressive behavior at home confrontation with Remarks Patient seen in dayroom with floor staff, patient continues intrusive though the intensity frequency and duration are softer. He denies suicidality homicidality voices or visions. There is still some mild grandiosity noted. However he is improving. It appears he does have his home to go back to once he is further stabilized. For now will increase at bedtime Geodon to 80 mg daily continue a.m. dose no change Review of Systems Except as stated in HPI: all other systems reviewed are Neg Mental Status Examination Appearance: Appropriate Consciousness: Alert Orientation: x4 Motor Activity: Normal gait Speech: Pressured, Rapid Language: Adequate Fund of Knowledge: Adequate Attention and Concentration: Adequate Memory: Unremarkable Mood: Manic Affect: Labile, Other (increased range and intensity) Thought Process & Associations: Other (flight of ideas) Thought Content: Racing thoughts Hallucination Type: None (denies) Delusion Type: Paranoid, Other (grandiose) Suicidal Ideation: No Suicidal Plan: No Suicidal Intention: No Homicidal Ideation: No Homicidal Plan: No Homicidal Intention: No Insight: Poor Judgment: Poor Results Vitals/IOs Vital Signs Date Time Temp Pulse Resp B/P (MAP) Pulse Ox O2 Delivery O2 Flow Rate FiO2 10/11/17 06:10 98.0 61 114/75 (88) 10/10/17 17:45 18 98 Intake and Output 10/11/17 10/11/17 10/12/17 08:00 16:00 00:00 Intake Total 120 ml 240 ml Balance 120 ml 240 ml Assessment & Plan Problem List: (1) Bipolar disorder, most recent episode manic ICD Codes: F31.10 - Bipolar disorder, current episode manic without psychotic features, unspecified (2) Marijuana abuse ICD Codes: F12.10 - Cannabis abuse, uncomplicated Assessment & Plan Estimated LOS: days patient's marla intrusiveness grandiosity somewhat she medication adjustments above Justification for Cont. Inpt. At this time patient will decompensate if placed in a lower level of care Discharge Planning Possible discharge to his home within the next week Request HC Surrog/Guard Advoc?: Yes Isaiah Houston MD Oct 11, 2017 15:03
[2017-10-11 16:18] VITALS: BP 125/66; PULSE 63; RESP 16; TEMP 98.1; O2SAT 100
[2017-10-11] MEDS: LATANOPROST 0.005% OPHT SOLN 2.5 ML BTL EACH EYE SCH ×3 (20:45→20:50)
[2017-10-11] MEDS: amLODIPine BESYLATE 5 MG TAB PO SCH (20:46)
[2017-10-11] MEDS: ZIPRASIDONE HCL 80 MG CAP PO SCH (20:46)
[2017-10-11] MEDS: LOSARTAN 50 MG TAB PO SCH (20:47)
[2017-10-11] MEDS: EZETIMIBE 10 MG TAB PO SCH (20:47)
[2017-10-11] MEDS: ATORVASTATIN 20 MG TAB PO SCH (21:15)
[2017-10-12 06:07] VITALS: BP 156/66; PULSE 63; RESP 16; TEMP 96.4; O2SAT 97
[2017-10-12] MEDS: ZIPRASIDONE HCL 20 MG CAP PO SCH (08:48)
[2017-10-12] MEDS: ASPIRIN 81 MG CHEW TAB CHEW SCH (08:49)
[2017-10-12] MEDS: CHLORTHALIDONE 50 MG TAB PO SCH (08:49)
[2017-10-12] MEDS: ACETAMINOPHEN 325 MG TAB PO PRN ×2 (10:00→18:28)
--- NOTE | 2017-10-12 15:36 | HHI.PYPN ---
Subjective Chief Complaint: patient manic with increased aggressive behavior at home confrontation with Remarks Patient was seen and case discussed with nursing. Patient remains a various manic behaviors. He is hyperverbal, grandiose, pressured speech. He believes that his Geodon is giving him a high just like marijuana and acid he should stop using. He is intrusive with other patients. Otherwise no outbursts, and behaving well on the unit. Tolerating medications well Mental Status Examination Appearance: Appropriate Consciousness: Alert Orientation: x4 Motor Activity: Normal gait Speech: Pressured, Rapid Language: Adequate Fund of Knowledge: Adequate Attention and Concentration: Adequate Memory: Unremarkable Mood: Manic Affect: Labile, Other (increased range and intensity) Thought Process & Associations: Tangential Thought Content: Racing thoughts Hallucination Type: None (denies) Delusion Type: Paranoid, Other (grandiose) Suicidal Ideation: No Suicidal Plan: No Suicidal Intention: No Homicidal Ideation: No Homicidal Plan: No Homicidal Intention: No Insight: Poor Judgment: Poor Results Vitals/IOs Vital Signs Date Time Temp Pulse Resp B/P (MAP) Pulse Ox O2 Delivery O2 Flow Rate FiO2 10/12/17 06:07 96.4 63 16 156/66 (96) 97 Intake and Output 10/12/17 10/12/17 10/13/17 08:00 16:00 00:00 Intake Total 700 ml Balance 700 ml Assessment & Plan Problem List: (1) Bipolar disorder, most recent episode manic ICD Codes: F31.10 - Bipolar disorder, current episode manic without psychotic features, unspecified (2) Marijuana abuse ICD Codes: F12.10 - Cannabis abuse, uncomplicated Assessment & Plan Continue current treatment plan Justification for Cont. Inpt. Patient would decompensate in a less restrictive setting. Request HC Surrog/Guard Advoc?: Yes Paulino Kendrick DO Oct 12, 2017 15:36
[2017-10-12 17:46] VITALS: BP 125/66; PULSE 63; RESP 16; TEMP 98.1; O2SAT 100
[2017-10-12] MEDS: LATANOPROST 0.005% OPHT SOLN 2.5 ML BTL EACH EYE SCH (20:32)
[2017-10-12] MEDS: ZIPRASIDONE HCL 80 MG CAP PO SCH (20:33)
[2017-10-12] MEDS: amLODIPine BESYLATE 5 MG TAB PO SCH (20:33)
[2017-10-12] MEDS: LOSARTAN 50 MG TAB PO SCH (20:33)
[2017-10-12] MEDS: EZETIMIBE 10 MG TAB PO SCH (20:33)
[2017-10-13 06:07] VITALS: BP 132/67; PULSE 56; RESP 16; TEMP 97.5; O2SAT 98
[2017-10-13] MEDS: ASPIRIN 81 MG CHEW TAB CHEW SCH (08:38)
[2017-10-13] MEDS: ZIPRASIDONE HCL 20 MG CAP PO SCH (08:38)
[2017-10-13] MEDS: CHLORTHALIDONE 50 MG TAB PO SCH (08:38)
--- NOTE | 2017-10-13 11:22 | HHI.PYPN ---
Subjective Chief Complaint: patient manic with increased aggressive behavior at home confrontation with Remarks Patient was seen and case discussed with nursing. Patient is pleasant and cooperative with exam. He remains hyperverbal, perseverant and grandiose. However these symptoms appear slightly less intense compared to yesterday. Compliant with medications and behaving well on the unit. Continues to perseverate about smoking marijuana when he leaves Mental Status Examination Appearance: Appropriate Consciousness: Alert Orientation: x4 Motor Activity: Normal gait Speech: Pressured, Rapid Language: Adequate Fund of Knowledge: Adequate Attention and Concentration: Adequate Memory: Unremarkable Mood: Manic Affect: Labile, Other (increased range and intensity) Thought Process & Associations: Tangential Thought Content: Racing thoughts Hallucination Type: None (denies) Delusion Type: Paranoid, Other (grandiose) Suicidal Ideation: No Suicidal Plan: No Suicidal Intention: No Homicidal Ideation: No Homicidal Plan: No Homicidal Intention: No Insight: Poor Judgment: Poor Results Vitals/IOs Vital Signs Date Time Temp Pulse Resp B/P (MAP) Pulse Ox O2 Delivery O2 Flow Rate FiO2 10/13/17 06:07 97.5 56 16 132/67 (88) 98 Intake and Output 10/13/17 10/13/17 10/14/17 08:00 16:00 00:00 Intake Total 120 ml 360 ml Balance 120 ml 360 ml Assessment & Plan Problem List: (1) Bipolar disorder, most recent episode manic ICD Codes: F31.10 - Bipolar disorder, current episode manic without psychotic features, unspecified (2) Marijuana abuse ICD Codes: F12.10 - Cannabis abuse, uncomplicated Assessment & Plan Continue current treatment plan Justification for Cont. Inpt. Patient will decompensate in a less restrictive setting Request HC Surrog/Guard Advoc?: Yes Paulino Kendrick DO Oct 13, 2017 11:22
[2017-10-13 18:18] VITALS: BP 157/73; PULSE 70; RESP 18; TEMP 97.3; O2SAT 96
[2017-10-13] MEDS: LATANOPROST 0.005% OPHT SOLN 2.5 ML BTL EACH EYE SCH (20:09)
[2017-10-13] MEDS: EZETIMIBE 10 MG TAB PO SCH (20:09)
[2017-10-13] MEDS: LOSARTAN 50 MG TAB PO SCH (20:09)
[2017-10-13] MEDS: ZIPRASIDONE HCL 80 MG CAP PO SCH (20:09)
[2017-10-13] MEDS: ACETAMINOPHEN 325 MG TAB PO PRN (20:10)
[2017-10-13] MEDS: amLODIPine BESYLATE 5 MG TAB PO SCH (20:10)
[2017-10-14 06:41] VITALS: BP 133/63; PULSE 70; RESP 18; TEMP 98.4; O2SAT 98
[2017-10-14] MEDS: ZIPRASIDONE HCL 20 MG CAP PO SCH (09:37)
[2017-10-14] MEDS: ASPIRIN 81 MG CHEW TAB CHEW SCH (09:37)
[2017-10-14] MEDS: CHLORTHALIDONE 50 MG TAB PO SCH (09:37)
[2017-10-14] MEDS ORDERED: EZET1TAB8 PO (11:54)
[2017-10-14] MEDS ORDERED: COZA50TA PO (11:54)
[2017-10-14] MEDS ORDERED: LATA0.002 EACH EYE (11:54)
[2017-10-14] MEDS ORDERED: AZEL1SPR2 EACH NARE (11:54)
[2017-10-14] MEDS ORDERED: GEOD80CA PO (11:54)
[2017-10-14] MEDS ORDERED: ASPI-516 CHEW (11:54)
[2017-10-14] MEDS ORDERED: ATOR20TA15 PO (11:54)
[2017-10-14] MEDS ORDERED: CHLO25TA2 PO (11:54)
[2017-10-14] MEDS ORDERED: AMLO2.5T PO (11:54)
--- NOTE | 2017-10-14 11:59 | HHI.DS ---
Psychiatry Discharge Summary Inpatient Psychiatric care?: Yes Advance Directive: No Reason Not Provided: patient declined Mental Health AdvanceDirective: No (patient declined) Health Care Proxy: No (patient declined) Admission Admission Date Sep 26, 2017 at 21:42 Admission Diagnosis: (1) Marijuana abuse ICD Code: F12.10 - Cannabis abuse, uncomplicated (2) Bipolar disorder, most recent episode manic ICD Code: F31.10 - Bipolar disorder, current episode manic without psychotic features, unspecified Brief History Patient is a 72-year-old white male who comes here under [place] act by the [place] [employer] dated to 118 1300 hrs. that document reviewed and agreed with stating Terry called 911 and through the conversation he stated he had 18 guns and wanted the SWAT team to respond he then asked the dispatcher "what would happen if I start shooting out the windows at them" Mr. Stewart states that if the chief what have had coffee with him none though this would not have happened. Patient seen screen at [facility] in the ED urine toxicology positive for marijuana. Patient transferred to the 2500 unit. Review of our EMR shows this is his first visit with us. At the present time patient sitting in a markedly her rouse state in the day room nurse Antonia and counselor Jennifer present throughout session patient is a thin slight slender male appears stated age. He does acknowledge being bipolar. But that the only treatment he needs is to smoke marijuana a few times per day and at bedtime to help him sleep and keep control of it. He denies any depressive symptoms with this. He denies any inpatient hospitalizations with this. He does state he has seen various psychiatrists including Dr. cr at the [employer] accounts [facility] a number of years ago. He states he befriended some man recently. He thought that this person was near his home again and he was afraid for his safety leading to this confrontation. He does denies suicidality homicidality to me. He does deny voices or visions to me. He does deny alcohol use. But readily acknowledges marijuana use. He states he is financially well off that he has houses here in [place] and in [place]. They has a Masters degree in the engineering of business. He has been for 42 years. He has a son who committed suicide 29 years of a related to bipolar disorder. Patient shows no significant insight into his disease. He rationalizes and intellectualizes this quite readily and easily. I also talked with patient's Clare Cordero at [phone]. She states that she left the house last week in March to go to [place] because she is afraid for her own safety stating that there is no episode the patient stratum her on her bed threatening to kill himself and kill her. He did have 1 pistol in the house that she was afraid of. She states the give various weapons in their various home. And also safety deposit box. She says she has suffered through multiples episodes of marla she seems to make a correlation to his use with cessation of marijuana and the manic episodes that occur perhaps twice a year. Though this episode is by far the worst. At this time patient does meet criteria for acute involuntary inpatient psychiatric hospitalization. I'll do first opinion request second opinion. I feel he does have capacity. We did discuss medications. Patient is willing with much negotiation to try a small dose of Geodon 40 mg daily over the next few days. We will also the hospitalist consult with us patient is on multiple medical medications as per the med reconciliation Tobacco Use In Past 30 Days: No Tobacco Past 30 Days Alcohol Use: Never Hospital Course Patient's hospital course was uneventful but's low. His marla intrusiveness rapid pressured speech and overall ingratiating attitude slowly improved as we titrated his Geodon. There still remains some mild grandiosity. However the intensity of his affect has softened the duration and frequency of these outbursts have markedly decreased. Denies suicidality homicidality voices or visions. He does have a home to return to. He states he wants to be compliant with medication. He states is willing to abstain from marijuana. And follow- up with [facility] March[facility] act. Thus patient was discharged today medications as mentioned above follow-up Heath Marchman act Results Blood Pressure 133 / 63 Vital Signs Date Time Temp Pulse Resp B/P (MAP) Pulse Ox O2 Delivery O2 Flow Rate FiO2 10/14/17 06:41 98.4 70 18 133/63 (86) 98 Laboratory Results Test 09/30/17 05:07 Cholesterol Level 110 MG/DL (120-200) HDL Cholesterol 55.8 MG/DL (40.0-60.0) LDL Cholesterol 36 MG/DL (0-99) Triglycerides Level 89 MG/DL (42-150) Summary of Procedures None done Imaging Last Impressions Head CT 09/26/17 0000 Signed Impressions: Service Date/Time: September 19:07 - CONCLUSION: No acute disease. Negro Guzmán MD Pending results at discharge: No Medications # of Antipsychotic meds at D/C: 1 Approp Antipsych med options 1 - Minimum of three failed multiple trials of monotherapy. 2 - Documented plan to taper to monotherapy due to previous use of multiple meds OR cross-taper in progress at D/C. 3 - Documentation of augmentation of Clozapine. 4 - Justification other than those listed in allowable values 1-3, document here : Discharge Discharge Date: Oct 14, 2017 Discharge Diagnosis: (1) Bipolar disorder, most recent episode manic Diagnosis: Principal ICD Code: F31.10 - Bipolar disorder, current episode manic without psychotic features, unspecified (2) Marijuana abuse Diagnosis: Secondary ICD Code: F12.10 - Cannabis abuse, uncomplicated Pt Condition on Discharge: Stable Discharge Disposition: Discharge Home Discharge Instructions Diet Instructions: As Tolerated, No Restrictions Activities you can perform: Regular-No Restrictions Scheduled Appointment: Heath Becerra Appointment Date: Oct 15, 2017 Appointment Time: 730am Discharge Time > 30 minutes Mental Status Examination Appearance: Appropriate Consciousness: Alert Orientation: x4 Motor Activity: Normal gait Speech: Pressured, Rapid Language: Adequate Fund of Knowledge: Adequate Attention and Concentration: Adequate Memory: Unremarkable Mood: Manic Affect: Labile, Other (increased range and intensity) Thought Process & Associations: Tangential Thought Content: Racing thoughts Hallucination Type: None (denies) Delusion Type: Paranoid, Other (grandiose) Suicidal Ideation: No Suicidal Plan: No Suicidal Intention: No Homicidal Ideation: No Homicidal Plan: No Homicidal Intention: No Insight: Poor Judgment: Poor Discharge/Advance Care Plan Health Problems: (1) Bipolar disorder, most recent episode manic (2) Marijuana abuse Goals to promote your health * To prevent worsening of your condition and complications * To maintain your health at the optimal level Directions to meet your goals Take your medications as prescribed Follow your dietary instruction Follow activity as directed Keep your appointments as scheduled Take your immunizations and boosters as scheduled If your symptoms worsen call your PCP, if no PCP go to Urgent Care Center or Emergency Room For 18/03 questions related to your inpatient stay or results of tests pending at discharge, please contact Dr. Isaiah Houston at Smoking is Dangerous to Your Health. Avoid second hand smoking Isaiah Houston MD Oct 14, 2017 11:59
== END 2017-10-14 14:10 | disposition home or self-care (01) | DRG 885 ==
LOC: NEPD 14:36 → NEDA 21:42 → H250 22:35
PROVIDERS: ADMIT Psychiatry & Neurology Psychiatry; ATTEND Psychiatry & Neurology Psychiatry
DX: F31.10 Bipolar disorder, current episode manic without psychotic features, unspecified (principal); Z91.14 Patient's other noncompliance with medication regimen; I10 Essential (primary) hypertension; F12.10 Cannabis abuse, uncomplicated; E87.6 Hypokalemia; H40.9 Unspecified glaucoma; E78.5 Hyperlipidemia, unspecified; Z79.82 Long term (current) use of aspirin; Z90.2 Acquired absence of lung [part of]; Z85.118 Personal history of other malignant neoplasm of bronchus and lung; Z81.8 Family history of other mental and behavioral disorders
CPT/HCPCS: 70450; 80048; 80053; 80061; 80307; 81001; 85025; 93005; 96372; J1630; J2060; Q0163

== ENCOUNTER 2018-03-13 19:41 | Inpatient (IN) ==
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
[2018-03-13 20:57] LABS: Baso % (Auto) 0.5 % (0.0-2.0); Eos # (Auto) 0.1 th/mm3 (0.0-0.4); Eos % (Auto) 0.6 % (0.0-4.0); Hematocrit 41.4 % (39.0-51.0); Hemoglobin 13.6 gm/dL (13.0-17.0); Lymph # (Auto) 1.8 th/mm3 (1.0-4.8); Lymph % (Auto) 19.6 % (9.0-44.0); Mean Corpuscular HGB Conc 32.8 % (32.0-36.0); Mean Corpuscular Hemoglobin 29.4 pg (27.0-34.0); Mean Corpuscular Volume 89.8 fL (80.0-100.0); Mean Platelet Volume 8.5 fL (7.0-11.0); Mono # (Auto) 0.8 th/mm3 (0.0-0.9); Mono % (Auto) 8.9 % (0.0-8.0); Neut # (Auto) 6.6 th/mm3 (1.8-7.7); Neut % (Auto) 70.4 % (16.0-70.0); Platelet Count 253 th/mm3 (150-450); Red Blood Count 4.61 mil/mm3 (4.50-5.90); Red Cell Distribution Width 14.6 % (11.6-17.2); White Blood Count 9.3 th/mm3 (4.0-11.0)
[2018-03-13 21:00] LABS: Amphetamine Screen,Urine Neg (Neg); Barbiturate Screen,Urine Neg (Neg); Cannabinoid Screen,Urine Pos (Neg); Cocaine Screen,Urine Neg (Neg)
[2018-03-13 21:06] LABS: Albumin 3.7 g/dL (3.4-5.0); Anion Gap 9 meq/L (5-15); Aspartate Aminotransferase 24 U/L (15-37); Blood Urea Nitrogen 21 mg/dL (7-18); Calcium 9.5 mg/dL (8.5-10.1); Chloride 107 meq/L (98-107); Glomerular Filtration Rate 76 mL/min (>89); Glucose,Random 109 mg/dL (74-106); Potassium 3.9 meq/L (3.5-5.1); Sodium 143 meq/L (136-145)
[2018-03-13 21:07] LABS: Alanine Aminotransferase 31 U/L (12-78)
[2018-03-13 21:13] LABS: Opiate Screen,Urine Neg (Neg)
[2018-03-13 21:17] LABS: Alkaline Phosphatase 41 U/L (45-117); Thyroid Stimulating Hormone 0.949 uIU/mL (0.358-3.740); Total Protein 7.1 g/dL (6.4-8.2)
[2018-03-14] MEDS ORDERED: Aluminum/Magnesium/Simethacone Susp 30 ML UDC PO PRN (11:17)
--- NOTE | 2018-03-14 13:57 | ED ---
HPI - Psych - General Source: patient Mode of arrival: ambulatory Limitations: altered mental status - History of Present Illness MD complaint: altered mental status Onset (ago): month(s) Duration: constant History of same: Yes Relieving factors: medication Exacerbating factors: drug use Context: recent drug abuse, not taking psychiatric medications Associated psychiatric symptoms: delusions (grandiose) - General Chief Complaint: Psychiatric Symptoms Stated Complaint: psych eval/flagler Time Seen by Provider: 03/14/18 11:13 - History of Present Illness HPI Narrative: This is a 72 year-old , male who presents to this facility under a Egan Act for bizarre behavior and threatening the police with violence. He is well known to this facility with his last admission here being in September 2017. Reviewed electronic medical record, labs, and discussed case with staff. Patient 's toxicology screen is positive for cocaine and cannabinoids. He is observed and heard in the hallway throughout the morning talking shadow boxing and talking nonstop. His evaluation was conducted in his room in [facility]. He is hyperverbal. His speech is rapid and pressured. He is quite grandiose. He denies being suicidal. States that he would like to harm the police. Denies auditory or visual hallucinations. He is quite manic. He is quite expansive with a euthymic affect. When asked why he's here, the patient states that he called the police to "give me a ride home". When I point out that's not what they do he states "I walked 30 miles I needed a ride home, I have four houses, you know. I know everyone in [facility]". He states that he "walked 30 miles to buy cypress cabins to put in the durbin for the homeless". He mentions somebody's name and states, "I' m sure you know her she's extremely important. She gave me [address] and I'm going to buy cypress cabins for the homeless to live in and put them on the land." He has no insight and his judgement is extremely poor. (Mariana Solis) - Related Data Home Medications Medication Instructions Recorded Confirmed ziprasidone HCl [Geodon] 60 mg PO DAILY 03/14/18 03/14/18 ziprasidone HCl [Geodon] 80 mg PO HS 03/14/18 03/14/18 Allergies Allergy/AdvReac Type Severity Reaction Status Date / Time No Known Allergies Allergy Verified 03/14/18 12:42 PMF - History History Provided By: Patient, Medical Record - Medical History Medical History: Medical History (Last Reviewed 03/14/18 @ 13:50 by KAREN Wolfe) Anxiety Bipolar disorder Glaucoma High cholesterol Hypertension Marijuana abuse - Substance Use History Substance History: Active Abuse - Substance Use Type Marijuana Status: Active Route Used: Inhalation Reason for Use: Calm Down, Sleep Comment: PATIENT SMOKES MARIJUANA A FEW TIMES A DAY AND AT BEDTIME TO HELP HIM SLEEP AND CONTROL THE SYMPTOMS OF HIS DISORDER PER PREVIOUS ADMISSION. - Travel History Recent Travel in the [place] Within the Last 8 Weeks: No Recent Travel Out of the Country Within the Last 8 Weeks: No Psychiatric History - Psychiatric History Psychiatric Treatment History: History of Psychiatric Treatment, History of Hospitalization in a Psychiatric Facility, History of Community Mental Health Treatment History of Inpatient Treatment: Yes Firearms in Home: No - Psychiatric History The last admission to this facility was September 2017. (Mariana Solis) - Legal History Unknown (Mariana Solis) - Family Psychiatric History UTO (Mariana Solis) Physical Exam - General Limitations: altered mental status Mental Status Examination Appearance: Disheveled Consciousness: Alert, Vigilant, Highly distractible Orientation: x4 Motor Activity: Normal gait Speech: Pressured, Rapid Language: Adequate Fund of Knowledge: Inadequate Attention and Concentration: Easily distracted Memory: Impaired Mood: Manic Affect: Euthymic, Other (expansive) Thought Process & Associations: Loose associations, Circumstantial, Tangential Thought Content: Delusional Hallucination Type: None Delusion Type: Other (grandiose) Suicidal Ideation: No Suicidal Plan: No Suicidal Intention: No Homicidal Ideation: No Homicidal Plan: No Homicidal Intention: No Insight: Poor Judgment: Poor Initial Documented Vital Signs Temperature 99.3 F 03/13/18 19:54 Pulse Rate 70 03/13/18 19:54 Respiratory Rate 18 03/13/18 19:54 Blood Pressure 185/86 H 03/13/18 19:54 Pulse Oximetry 98 03/13/18 19:54 Last Documented Vital Signs Temperature 99.3 F 03/13/18 19:54 Pulse Rate 66 03/14/18 11:05 Respiratory Rate 20 03/14/18 11:05 Blood Pressure 192/84 H 03/14/18 11:05 Pulse Oximetry 97 03/13/18 22:53 MDM - Psych - Diagnosis (1) Bipolar disorder with severe marla Status: Acute - Lab Data Result diagrams: 03/13/18 20:08 03/13/18 20:08 - [facility] Narrative Medical decision making narrative: Given the patient's current marla and his previous history, it is unlikely he can provide care for self and could pose a danger to himself and others. I am admitting him to a locked psychiatric unit for further evaluation and treatment as deemed necessary. He was willing to sign consent for his psychotropic medications and has agreed to be compliant with them. However, he will be admitted under the Egan Act. (Mariana Solis) - Lab Data Lab Results 03/13/18 03/13/18 03/13/18 Range/Units 20:08 20:08 20:08 WBC 9.3 (4.0-11.0) th/mm3 RBC 4.61 (4.50-5.90) mil/mm3 Hgb 13.6 (13.0-17.0) gm/dL Hct 41.4 (39.0-51.0) % MCV 89.8 (80.0-100.0) fL MCH 29.4 (27.0-34.0) pg MCHC 32.8 (32.0-36.0) % RDW 14.6 (11.6-17.2) % Plt Count 253 (150-450) th/mm3 MPV 8.5 (7.0-11.0) fL Neut % (Auto) 70.4 H (16.0-70.0) % Lymph % (Auto) 19.6 (9.0-44.0) % [place] % (Auto) 8.9 H (0.0-8.0) % Eos % (Auto) 0.6 (0.0-4.0) % Baso % (Auto) 0.5 (0.0-2.0) % Neut # (Auto) 6.6 (1.8-7.7) th/mm3 Lymph # (Auto) 1.8 (1.0-4.8) th/mm3 [place] # (Auto) 0.8 (0.0-0.9) th/mm3 Eos # (Auto) 0.1 (0.0-0.4) th/mm3 Baso # (Auto) 0.0 (0.0-0.2) th/mm3 WBC Differential . Differential Comment Auto diff final Sodium 143 (136-145) meq/L Potassium 3.9 (3.5-5.1) meq/L Chloride 107 (98-107) meq/L Carbon Dioxide 27.0 (21.0-32.0) meq/L Anion Gap 9 (5-15) meq/L BUN 21 H (7-18) mg/dL Creatinine 0.97 (0.60-1.30) mg/dL Estimated GFR 76 L (>89) mL/min Random Glucose 109 H (74-106) mg/dL Calcium 9.5 (8.5-10.1) mg/dL Total Bilirubin 1.0 (0.2-1.0) mg/dL AST 24 (15-37) U/L ALT 31 (12-78) U/L Alkaline Phosphatase 41 L (45-117) U/L Total Protein 7.1 (6.4-8.2) g/dL Albumin 3.7 (3.4-5.0) g/dL TSH 0.949 (0.358-3.740) uIU/mL Urine Opiates Screen Neg (Neg) Ur Barbiturates Screen Neg (Neg) Ur Amphetamines Screen Neg (Neg) U Benzodiazepines Scrn Neg (Neg) Urine Cocaine Screen Neg (Neg) U Cannabinoids Screen Pos H (Neg) Serum Alcohol Less than 3 (0-5) mg/dL
--- NOTE | 2018-03-14 18:50 | P.CONIM ---
History of Present Illness Reason for Consult: HTN Primary Care Provider: UNKNOWN History of Present Illness: The patient is a 72-year-old male with a past medical history of hypertension and psychiatric problems who is presenting to the hospital under a Egan act. The patient states he has been Egan acted twice recently. He says he needs to go and buy or sell 100 log cabins on top of other things. The patient would like to leave the hospital so he could pursue the log cabins. He denies any pain or other medical complaint. I was contacted by psychiatry urgently as the patient's blood pressure was noted to be above a systolic of 200. Medicine was consulted for management of hypertension. The patient states that his blood pressure is controlled by amlodipine 2.5 mg a day and if he stays inside he is given a diuretic. The patient states he is followed at [facility] and was found to have heart disease although he denies a heart attack or heart failure. He says his cholesterol is well controlled. He says he is is a borderline diabetic. He plans on quitting smoking soon. Review of Systems All other systems reviewed negative except as stated [facility] - History History Provided By: Patient - Medical History Medical History: Medical History (Last Updated 03/14/18 @ 18:46 by Aba Lopez DO) Anxiety BPH (benign prostatic hyperplasia) Bipolar disorder Glaucoma High cholesterol Hypertension Marijuana abuse - Family History Family History: Family History (Last Updated 03/14/18 @ 18:47 by Aba Lopez DO) Other Patient denies significant medical history - Tobacco History Second Hand Smoke Exposure: Yes Tobacco Use In Past 30 Days: Yes Smoking Status: Heavy tobacco smoker Tobacco Type: Cigarettes, Pipe - Alcohol History How Often Do You Have a Drink Containing Alcohol: 4 or more times a week - Substance Use History Substance History: Active Abuse - Substance Use Type Marijuana Status: Active Route Used: Inhalation Reason for Use: Calm Down, Get High Comment: PATIENT SMOKES MARIJUANA A FEW TIMES A DAY AND AT BEDTIME TO HELP HIM SLEEP AND CONTROL THE SYMPTOMS OF HIS DISORDER PER PREVIOUS ADMISSION. - Travel History Recent Travel in the [place] Within the Last 8 Weeks: No Recent Travel Out of the Country Within the Last 8 Weeks: No Medications and Allergies Active Medications: Active Medications Al Hydrox/Mg Hydrox/Simethicone (Mag-Al Plus Susp Liq) 30 ml PO Q6H PRN PRN Reason: DYSPEPSIA Amlodipine Besylate (Norvasc) 5 mg PO ONCE ONE Stop: 03/14/18 18:10 Amlodipine Besylate (Norvasc) 10 mg PO DAILY REPLACED BY [facility] Diphenhydramine HCl (Benadryl) 50 mg PO HS PRN PRN Reason: INSOMNIA Enalaprilat (Vasotec Inj) 2.5 mg IV.PUSH Q6H PRN PRN Reason: SBP> OR = 180, DBP> OR = 100 Hydroxyzine HCl (Atarax) 50 mg PO Q6H PRN PRN Reason: ANXIETY Lisinopril (Prinivil) 10 mg PO DAILY REPLACED BY [facility] Miscellaneous (Pill Splitter) 1 each OTHER UNSCH REPLACED BY [facility] Neomycin/Polymyxin/Bacitracin (Neosporin Oint) 1 applicatio TOPICAL Q6H PRN PRN Reason: WOUND HEALING Nicotine (Habitrol 21 Mg Patch.24 Hr) 1 patch T-DERMAL DAILY REPLACED BY [facility] Patch Removal (Remove Old Patch) 1 each T-DERMAL DAILY REPLACED BY [facility] Ziprasidone (Geodon) 80 mg PO HS REPLACED BY [facility] Ziprasidone (Geodon) 60 mg PO DAILY REPLACED BY [facility] Allergies Allergy/AdvReac Type Severity Reaction Status Date / Time No Known Allergies Allergy Verified 03/14/18 12:42 Home Medications Medication Instructions Recorded Confirmed Type amlodipine 2.5 mg PO HS 03/14/18 03/14/18 History rosuvastatin 10 mg PO DAILY 03/14/18 03/14/18 History ziprasidone HCl [Geodon] 60 mg PO DAILY 03/14/18 03/14/18 History ziprasidone HCl [Geodon] 80 mg PO HS 03/14/18 03/14/18 History Exam Vital signs: Vital Signs 03/13/18 19:54 03/13/18 22:53 03/14/18 02:39 Temperature 99.3 F Pulse Rate 70 66 Respiratory Rate 18 16 Blood Pressure 185/86 H 188/88 H 158/68 H Pulse Oximetry 98 97 03/14/18 11:05 03/14/18 14:39 03/14/18 18:00 Temperature 97.7 F 97.5 F L Pulse Rate 66 69 68 Respiratory Rate 20 16 18 Blood Pressure 192/84 H 178/88 H 190/70 H Pulse Oximetry 98 96 Intake & Output 03/13/18 03/14/18 03/14/18 18:59 06:59 18:59 Intake Total 360 / 360 Balance 360 / 360 Weight 59.421 kg 54.2 kg Intake: Oral 360 / 360 Other: Weight On Admission 54.2 kg Narrative: GENERAL: This is a well-developed well-nourished male in no acute distress SKIN: Warm and dry. HEAD: Atraumatic. Normocephalic. EYES: Pupils equal and round. No scleral icterus. No injection or drainage. ENT: No nasal bleeding or discharge. Mucous membranes pink and moist. NECK: Trachea midline. No JVD. CARDIOVASCULAR: Regular rate and rhythm. No murmur appreciated. RESPIRATORY: No accessory muscle use. Clear to auscultation. Breath sounds equal bilaterally. GASTROINTESTINAL: Abdomen soft, non-tender, nondistended. Hepatic and splenic margins not palpable. MUSCULOSKELETAL: No obvious deformities. No clubbing. No cyanosis. No edema. NEUROLOGICAL: Awake and alert. No obvious cranial nerve deficits. Motor grossly within normal limits. Normal speech. PSYCHIATRIC: Elevated mood, speech pressured speech, tangential thought process , insight and judgment appear limited. Results - Labs CBC & Chem 7: 03/13/18 20:08 03/13/18 20:08 Labs: Laboratory Results - last 24 hr 03/13/18 03/13/18 03/13/18 20:08 20:08 20:08 WBC 9.3 RBC 4.61 Hgb 13.6 Hct 41.4 MCV 89.8 MCH 29.4 MCHC 32.8 RDW 14.6 Plt Count 253 MPV 8.5 Neut % (Auto) 70.4 H Lymph % (Auto) 19.6 Door % (Auto) 8.9 H Eos % (Auto) 0.6 Baso % (Auto) 0.5 Neut # (Auto) 6.6 Lymph # (Auto) 1.8 Door # (Auto) 0.8 Eos # (Auto) 0.1 Baso # (Auto) 0.0 WBC Differential . Differential Comment Auto diff final Sodium 143 Potassium 3.9 Chloride 107 Carbon Dioxide 27.0 Anion Gap 9 BUN 21 H Creatinine 0.97 Estimated GFR 76 L Random Glucose 109 H Calcium 9.5 Total Bilirubin 1.0 AST 24 ALT 31 Alkaline Phosphatase 41 L Total Protein 7.1 Albumin 3.7 TSH 0.949 Urine Opiates Screen Neg Ur Barbiturates Screen Neg Ur Amphetamines Screen Neg U Benzodiazepines Scrn Neg Urine Cocaine Screen Neg U Cannabinoids Screen Pos H Serum Alcohol Less than 3 Assessment and Plan - Plan Psych The pt is under a [place] Act. - management per psych. Hypertensive urgency SBP reported to be over 200 systolic. Pt asymptomatic at this time. - increase amlodipine from 2.5 mg daily to 10 mg daily. - add lisinopril 10 mg daily. - adjust above regimen as needed. - Vasotec as needed. - heart healthy diet. Nicotine abuse The pt says he will quit smoking for a while on his birthday in [birth year]. He requests a nicotine patch. - smoking cessation instruction. - would hold off on nicotine patch until blood pressure is better controlled. HLP The pt states his cholesterol is well controlled with the statin, but he sometimes gets leg cramps. - resume home regimen. PPx: Ambulation
[2018-03-14] MEDS ORDERED: amLODIPine 5 MG Tablet PO ONE (19:00)
[2018-03-14] MEDS ORDERED: amLODIPine 5 MG Tablet PO SCH (21:00)
[2018-03-14] MEDS: Lisinopril 10 MG Tablet PO SCH (22:12)
[2018-03-15 07:35] LABS: Potassium 3.8 meq/L (3.5-5.1)
[2018-03-15 07:40] LABS: Chol/HDL Ratio 2.38 Ratio; HDL Cholesterol 57.8 mg/dL (40.0-60.0)
[2018-03-15] MEDS: amLODIPine 10 MG Tablet PO SCH (09:11)
[2018-03-15] MEDS: Lisinopril 10 MG Tablet PO SCH (09:11)
--- NOTE | 2018-03-15 12:50 | P.HPPSY ---
Provisional Diagnosis Admission Date: March 14, 2018 11:33 [place] I.: 1. Bipolar disorder, presently manic, severe without psychosis 2. Cannabis abuse [place] II.: Deferred Competence Certification of Person's Competence To Provide Express and Informed Consent I have personally examined Shun Stewart, a person being served at [facility] on, March 15, 2018 1249. Express and informed consent means consent voluntarily given in writing, by a competent person, after sufficient explanation and disclosure of the subject matter involved to enable the person to make a knowing and willful decision without any element of force, fraud, deceit, duress, or other form of constraint or coercion. This person is 18 years of age or older, is not now known to be incompetent to consent to treatment with a guardian advocate, and does not have a health care surrogate or proxy currently making medical treatment decisions. I have found this person to be one of the following: [] Competent to provide express and informed consent, as defined above, for voluntary admission to this facility and is competent to provide express and informed consent for treatment. He/she has the consistent capacity to make well reasoned, willful, and knowing decisions concerning his or her medical or mental health treatment. The person fully and consistently understands the purpose of the admission for examination/placement and is fully capable of personally exercising all rights assured under [place] [X] Incompetent to provide express and informed consent to voluntary admission, and this is incompetent to provide express and informed consent to treatment. The person must be transferred to involuntary status and a petition for a guardian advocate filed with the Circuit Court. [] Refusing to provide express and informed consent to voluntary admission but is competent to provide express and informed consent for treatment. The person must be discharged or transferred to involuntary status. Form shall be completed within 24 hours of a person's arrival at the receiving facility and filed in the clinical record of each person: 1. Admitted on a voluntary basis 2. Permitted to provide express and informed consent to his/her own treatment 3. Allowed to transfer from involuntary to voluntary status 4. Prior to permitting a person to consent to his or her own treatment after having been previously found incompetent to consent to treatment. History of Present Illness Capacity: Lacks capacity Chief Complaint: Marla History of Present Illness: Mr. Stewart is a 72-year-old male with a history of bipolar disorder and cannabis use issues who presents under a Egan act by law enforcement alleging that law enforcement was called to a restaurant in response to the patient. Patient allegedly threatened to "beat the ass" of law enforcement. Reviewing the electronic medical record, I note that the patient was hospitalized in September of this year under Dr. Houston for a manic episode. Patient seen and examined with nurse, Tee. Chart reviewed. Case discussed with nursing staff. Per nursing staff, patient was quite angry and irritable yesterday, although he is more ebullient and expansive today. I find the patient standing at the nursing station rambling to no one in particular. He says "I have always been manic." He rambles about cell phones and porn. He has a confucianism preoccupation and says that we are both "men of the cloth." He talks about owning properties on several different [place] in [place]. This may be reality based. He also says that he plans to buy 100 cabins to house the mentally ill. He has a distinct irritable edge and says that he might act out violently here so that we "keep me for a month." He also talks about having an "anger mode" where he lashes out physically. He says that the family members of politicians like the governor of [place] have been messing up the waterways that his properties lie on, and he threatens to injure these individuals with a gun or hatchet. His speech is pressured and quite difficult to interrupt. He is distractible. He is intrusive and impulsive. He is floridly manic. Psychiatric interview is limited because of patient's degree of psychiatric symptomatology. The remainder of the psychiatric ROS is negative. Past psychiatric history: Patient is likely a very unreliable historian. 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 that he did not need to take any. He says that his most recent psychiatric admission was at the [facility] several months ago. Family history: The patient reports that his son completed suicide 7 years ago. Chemical dependency history: The patient reports that he drinks only one [place] Light with [place] daily. He says that he has a complicated ritual involved with drinking this beverage. Social history: The patient reports that he attended the [employer]. He says that his grandfather owned the [employer] restaurant. He attended [employer] in [facility]. 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 He is . In light of patient's degree of psychiatric impairment, I have reached out to Clare Serrano [phone] for collateral information. She is patient's ex-. She notes that the was finalized on Saturday of last week. She says that he has been experiencing "evil and hateful" manic episodes every 6 months for the last few years and she could not tolerate it anymore, and this is why she had to divorce him. Even though they are , he maintains telephone contact with Ms. Serrano and is reportedly quite verbally abusive on the phone. Ms. Mann points me in the direction of patient's sister Ros Willoughby to serve as HCS. Called sister Ms. Ros Bhakta [phone]. She is willing to act as HCS. R/ B/A for meds discussed with her, and she provides consent for meds as outlined below. She requests that we NOT contact Ms. Serrano going forward, and I have placed a nursing order to this effect. - Inpatient Certification I certify that the inpatient services were ordered in accordance with Medicare regulations governing the order. This includes certification that hospital inpatient services are reasonable and necessary and in the case of services not specified as inpatient-only under 42 CFR 419.22(n), that they are appropriately provided as inpatient services in accordance to with the 2-midnight benchmark under 43 CFR 412.3(e) I certify that inpatient psychiatric hospital services are medically necessary. Evaluation and treatment and/or diagnostic testing are expected to improve the patient's condition. The patient needs on a daily basis, active treatment furnished directly by or requiring the supervision of inpatient psychiatric facility personnel. Estimated Total Length of Stay (Days): 7 Plans for Post Hospital Care: Not yet determined Review of Systems unobtainable due to mental condition PMFSH - History History Provided By: Patient - Medical History Medical History: Medical History (Last Updated 03/14/18 @ 18:46 by Aba Lopez DO) Anxiety BPH (benign prostatic hyperplasia) Bipolar disorder Glaucoma High cholesterol Hypertension Marijuana abuse - Family History Family History: Family History (Last Updated 03/14/18 @ 18:47 by Aba Lopez DO) Other Patient denies significant medical history - Tobacco History Second Hand Smoke Exposure: Yes Tobacco Use In Past 30 Days: Yes Smoking Status: Heavy tobacco smoker Tobacco Type: Cigarettes, Pipe - Alcohol History How Often Do You Have a Drink Containing Alcohol: 4 or more times a week - Substance Use History Substance History: Active Abuse - Substance Use Type Marijuana Status: Active Route Used: Inhalation Reason for Use: Calm Down, Get High Comment: PATIENT SMOKES MARIJUANA A FEW TIMES A DAY AND AT BEDTIME TO HELP HIM SLEEP AND CONTROL THE SYMPTOMS OF HIS DISORDER PER PREVIOUS ADMISSION. - Travel History Recent Travel in the [facility] Within the Last 8 Weeks: No Recent Travel Out of the Country Within the Last 8 Weeks: No Quality Measures - Psychiatric History Psychological trauma history: Unable to obtain secondary to mental condition - Patient Strengths Patient's strengths (minimum of 2): In a monitored setting. Verbally fluent. Medications and Allergies Active Medications: Active Medications Al Hydrox/Mg Hydrox/Simethicone (Mag-Al Plus Susp Liq) 30 ml PO Q6H PRN PRN Reason: DYSPEPSIA Amlodipine Besylate (Norvasc) 10 mg PO DAILY [facility] Last Admin: 03/15/18 09:11 Dose: 10 mg Atorvastatin Calcium (Lipitor) 20 mg PO DAILY [facility] Last Admin: 03/15/18 09:12 Dose: 20 mg Diphenhydramine HCl (Benadryl) 50 mg PO HS PRN PRN Reason: INSOMNIA Last Admin: 03/14/18 20:42 Dose: 50 mg Enalaprilat (Vasotec Inj) 2.5 mg IV.PUSH Q6H PRN PRN Reason: SBP> OR = 180, DBP> OR = 100 Hydroxyzine HCl (Atarax) 50 mg PO Q6H PRN PRN Reason: ANXIETY Lisinopril (Prinivil) 10 mg PO DAILY [facility] Last Admin: 03/15/18 09:11 Dose: 10 mg Miscellaneous (Pill Splitter) 1 each [facility] Neomycin/Polymyxin/Bacitracin (Neosporin Oint) 1 applicatio TOPICAL Q6H PRN PRN Reason: WOUND HEALING Last Admin: 03/15/18 00:04 Dose: 1 applicatio Nicotine (Habitrol 21 Mg Patch.24 Hr) 1 patch T-DERMAL DAILY [facility] Last Admin: 03/15/18 09:13 Dose: 1 patch Patch Removal (Remove Old Patch) 1 each T-DERMAL DAILY [facility] Ziprasidone (Geodon) 80 mg PO [facility] Last Admin: 03/14/18 20:16 Dose: Not Given Ziprasidone (Geodon) 60 mg PO DAILY [facility] Last Admin: 03/15/18 09:13 Dose: Not Given Allergies Allergy/AdvReac Type Severity Reaction Status Date / Time No Known Allergies Allergy Verified 03/14/18 12:42 Home Medications Medication Instructions Recorded Confirmed Type amlodipine 2.5 mg PO HS 03/14/18 03/14/18 History rosuvastatin 10 mg PO DAILY 03/14/18 03/14/18 History ziprasidone HCl [Geodon] 60 mg PO DAILY 03/14/18 03/14/18 History ziprasidone HCl [Geodon] 80 mg PO HS 03/14/18 03/14/18 History Results - Labs CBC & Chem 7: 03/13/18 20:08 03/15/18 06:23 Labs: Laboratory Results - last 24 hr 03/15/18 06:23 Sodium 144 Potassium 3.8 Chloride 108 H Carbon Dioxide 29.0 Anion Gap 7 BUN 12 Creatinine 0.87 Estimated GFR 87 L Random Glucose 84 Calcium 9.0 Triglycerides 113 Cholesterol 138 LDL Cholesterol, Calc 58 HDL Cholesterol 57.8 Cholesterol/HDL Ratio 2.38 Labs reviewed. Exam Vital signs: Vital Signs 03/14/18 14:39 03/14/18 18:00 03/14/18 19:00 Temperature 97.7 F 97.5 F L Pulse Rate 69 68 Respiratory Rate 16 18 Blood Pressure 178/88 H 190/70 H 146/65 H Pulse Oximetry 98 96 03/15/18 06:00 Temperature 98.3 F Pulse Rate 71 Respiratory Rate 16 Blood Pressure 150/79 H Pulse Oximetry 96 Intake & Output 03/14/18 03/15/18 03/15/18 18:59 06:59 18:59 Intake Total 360 / 360 600 / 600 600 / 600 Output Total 2 / 2 Balance 360 / 360 598 / 598 600 / 600 Weight 54.2 kg Intake: Oral 360 / 360 600 / 600 600 / 600 Output: Urine 2 / 2 Other: Weight On Admission 54.2 kg Narrative: Physical exam completed by hospitalist applications sales consultant. On my examination today, the patient appears to be in no acute physical distress. He is somewhat hyperkinetic but no other abnormal motor movements are noted. Laboratories and vital signs reviewed: Mental Status Examination Appearance: Disheveled Consciousness: Alert, Highly distractible Orientation: Person, Place (Mental status limited by mental condition) Motor Activity: Normal gait Speech: Pressured, Rapid Language: Adequate Fund of Knowledge: Inadequate Attention and Concentration: Easily distracted Memory: Impaired Mood: Manic Affect: Other (expansive) Thought Process & Associations: Loose associations, Circumstantial, Tangential Thought Content: Other (Grandiose. Lutheran preoccupation.) Hallucination Type: None Delusion Type: None Suicidal Ideation: No Suicidal Plan: No Suicidal Intention: No Homicidal Ideation: No Homicidal Plan: No Homicidal Intention: No Insight: Poor Judgment: Poor Assessment and Plan - Assessment (1) Bipolar disorder, current episode manic without psychotic features, severe Code(s): F31.13 - Bipolar disorder, current episode manic without psychotic features, severe Status: Acute (2) Cannabis abuse Code(s): F12.10 - Cannabis abuse, uncomplicated Status: Acute - Plan Plan: 72-year-old male with psychiatric history as detailed above who presents under a Egan act by law enforcement. The patient is floridly manic. He has been nonadherent with medications. He is in desperate need of mood stabilization and requires psychiatric hospitalization at this time for safety, observation and stabilization with psychotropic medications. Admit inpatient. Involuntary status. I have completed first opinion. Consult for second opinion. Request healthcare surrogate and guardian advocate. Patient has a history of medication nonadherence, and so initiation of an agent with available long-acting injectable seems reasonable. I will discontinue the patient's Geodon and initiate Risperdal M tabs 0.5 mg twice daily (geriatric dosing) with plans to titrate to effect for marla. Plan for Consta or Sustenna. Check EKG for QTc. For additional mood stabilization I will initiate Depakote ER. I would normally start this at 25 mg/kg/day, but in light of the patient's advanced age, I will instead start at 1000 mg daily ( i.e. ~18mg/kg/day) and plan to check a Depakote and ammonia level Saturday morning. In the event that the patient refuses medications or his severely agitated, Zyprexa 5 mg IM BID p.r.n. has been ordered. Hospitalist input noted and appreciated. Vitals every shift. Counselor to see. Disposition planning. Estimated length of stay: 10-14 days. Justification for Continued Inpatient Stay: Med changes. High risk for decompensation in less restrictive environment. Concern for impairment in safety. Discharge Planning: Pending psychiatric stabilization Request Healthcare Surrogate/Guardian Advocate?: Yes
[2018-03-15] MEDS ORDERED: Divalproex 500 MG ER Tablet PO SCH (13:30)
--- NOTE | 2018-03-15 14:52 | P.PN ---
Subjective Interval history: Patient is seen in break room and hallway and at nurses station. He is manic and appears unable to hold still. Very pleasant and talkative however also intrusive and impulsive. Denies any pain or shortness of breath. Denies any nausea vomiting or diarrhea. Tells me that he is eating well and says he is drinking "gallons of water". He denies any history of diabetes however he is an unreliable historian. Physical Exam Vital signs: Vital Signs 03/14/18 18:00 03/14/18 19:00 03/15/18 06:00 Temperature 97.5 F L 98.3 F Pulse Rate 68 71 Respiratory Rate 18 16 Blood Pressure 190/70 H 146/65 H 150/79 H Pulse Oximetry 96 96 Intake & Output 03/14/18 03/15/18 03/15/18 18:59 06:59 18:59 Intake Total 360 / 360 600 / 600 600 / 600 Output Total 2 / 2 Balance 360 / 360 598 / 598 600 / 600 Weight 54.2 kg Intake: Oral 360 / 360 600 / 600 600 / 600 Output: Urine 2 / 2 Other: Weight On Admission 54.2 kg Narrative: GENERAL: Well-nourished, well-developed adult male in no obvious distress. SKIN: Warm and dry. HEAD: Atraumatic. Normocephalic. CARDIOVASCULAR: Regular rate and rhythm. RESPIRATORY: No accessory muscle use. Clear to auscultation. Breath sounds equal bilaterally. GASTROINTESTINAL: Abdomen soft, non-tender, non-distended. Positive bowel sounds. MUSCULOSKELETAL: Extremities without clubbing, cyanosis, or edema. No obvious deformities. NEUROLOGICAL: Awake and alert. No obvious cranial nerve deficits. Motor grossly within normal limits. Normal speech. PSYCHIATRIC: Manic; insight and judgment poor. Results - Labs CBC & Chem 7: 03/13/18 20:08 03/15/18 06:23 Laboratory Results - last 24 hr 03/15/18 06:23 Sodium 144 Potassium 3.8 Chloride 108 H Carbon Dioxide 29.0 Anion Gap 7 BUN 12 Creatinine 0.87 Estimated GFR 87 L Random Glucose 84 Calcium 9.0 Triglycerides 113 Cholesterol 138 LDL Cholesterol, Calc 58 HDL Cholesterol 57.8 Cholesterol/HDL Ratio 2.38 Assessment and Plan - Plan Patient is a 72-year-old male with a past history of hypertension and psychiatric problems who came to the hospital under Egan act for aggressive behavior. Initial blood pressure was noted to be systolic of 200. Psych The pt is under a Egan Act. - management per psych. Hypertensive urgency w/ diagnosis of chronic hypertension -BP now 140s-150s over 60s-70s with medication change. -Likely exacerbated by manic episode. If BP is still elevated when marla improved consider increasing lisinopril. - increased amlodipine from 2.5 mg daily to 10 mg daily on 03/14. - added lisinopril 10 mg daily on 03/14. - Vasotec as needed. - heart healthy diet. Nicotine abuse The pt says he will quit smoking for a while on his birthday in March. He requests a nicotine patch. - smoking cessation instruction. - would hold off on nicotine patch until blood pressure is better controlled. HLP The pt states his cholesterol is well controlled with the statin, but he sometimes gets leg cramps. - resume home regimen. Thirst -Will rule out diabetes with A1c. Random glucose has been WNL. -Patient gives inconsistent history of diabetes -reporting that he is both prediabetic and not diabetic. PPx: Ambulation Discussed with: Patient and nurse
[2018-03-15] MEDS: risperiDONE 0.5 MG ODT PO SCH ×2 (16:05→20:40)
[2018-03-16] MEDS: risperiDONE 0.5 MG ODT PO SCH ×2 (08:36→21:51)
[2018-03-16] MEDS: Lisinopril 10 MG Tablet PO SCH (08:36)
[2018-03-16] MEDS: amLODIPine 10 MG Tablet PO SCH (08:37)
[2018-03-16] MEDS: Divalproex 500 MG ER Tablet PO SCH (08:39)
[2018-03-16] MEDS ORDERED: Lisinopril 10 MG Tablet PO ONE (11:00)
--- NOTE | 2018-03-16 15:49 | ECG ---
Date Performed: 03/15/2018 Time Performed: 12:59:38 PTAGE: 72 years EKG: Sinus rhythm WITH OCCASIONAL VENTRICULAR PREMATURE COMPLEXES POSSIBLE LEFT ATRIAL ENLARGEMENT BORDERLINE ECG Sinc e PREVIOUS TRACING , no significant change noted PREVIOUS TRACIN09/27/2017 13.14 DOCTOR: Andry Jeffers Interpretating Date/Time 03/16/2018 15:49:07
--- NOTE | 2018-03-16 18:10 | P.PN ---
Subjective Interval history: Patient is seen in room. He continues to be manic and is wandering the hallways and talking to other patients and staff. Very poorly focused. Denies any pain or concerns. Tells me that he is getting right because of God. Physical Exam Vital signs: Vital Signs 03/15/18 18:18 03/16/18 06:30 03/16/18 17:06 Temperature 98.2 F 98.1 F 98.8 F Pulse Rate 72 64 64 Respiratory Rate 16 16 16 Blood Pressure 158/75 H 147/73 H 141/69 H Pulse Oximetry 98 98 95 Intake & Output 03/15/18 03/16/18 03/16/18 18:59 06:59 18:59 Intake Total 2039 840 / 840 720 / 720 Balance 2039 840 / 840 720 / 720 Intake: Oral 2039 840 / 840 720 / 720 Other: # Voids 4 2 4 Narrative: GENERAL: Well-nourished, well-developed adult male in no obvious distress. SKIN: Warm and dry. HEAD: Atraumatic. Normocephalic. CARDIOVASCULAR: Regular rate and rhythm. RESPIRATORY: No accessory muscle use. Clear to auscultation. Breath sounds equal bilaterally. GASTROINTESTINAL: Abdomen soft, non-tender, non-distended. Positive bowel sounds. MUSCULOSKELETAL: Extremities without clubbing, cyanosis, or edema. No obvious deformities. NEUROLOGICAL: Awake and alert. No obvious cranial nerve deficits. Motor grossly within normal limits. Normal speech. PSYCHIATRIC: Manic; insight and judgment poor. Results - Labs CBC & Chem 7: 03/13/18 20:08 03/15/18 06:23 Laboratory Results - last 24 hr 03/15/18 06:23 Hemoglobin A1c 6.0 Assessment and Plan - Plan Patient is a 72-year-old male with a past history of hypertension and psychiatric problems who came to the hospital under Egan act for aggressive behavior. Initial blood pressure was noted to be systolic of 200. Psych The pt is under a Egan Act. - management per psych. Hypertensive urgency w/ diagnosis of chronic hypertension -BP now 140s-150s over 60s-70s with medication change. -Likely exacerbated by manic episode. - increased amlodipine from 2.5 mg daily to 10 mg daily on 03/14. - added lisinopril 10 mg daily on 03/14; blood pressure inadequately controlled so will increase to 20 mg starting 03/16. -Patient is periodically refusing medications or only taking half dose which is making management difficult. - Vasotec as needed. - heart healthy diet. Nicotine abuse The pt says he will quit smoking for a while on his birthday in March. He requests a nicotine patch. - smoking cessation instruction. - would hold off on nicotine patch until blood pressure is better controlled. HLP The pt states his cholesterol is well controlled with the statin, but he sometimes gets leg cramps. - resume home regimen. Thirst; resolved -A1c 6.0. Random glucose has been WNL. -Patient gives inconsistent history of diabetes -reporting that he is both prediabetic and not diabetic. PPx: Ambulation Discussed with: Patient and nurse
--- NOTE | 2018-03-16 18:20 | P.PNPSY ---
Subjective Chief Complaint: Lakshmi Remarks: Reviewed electronic medical records and discussed case with staff. Follow-up was conducted in the hallway with nurse present. Patient continues to be intrusive and manic. His grandiosity remains as he tells this provider, "I have hired a new sam". 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 He reports that he feels "wonderful". States that he "slept better than I ever had on this new medication". Reports that his appetite is "magnificent". His nurse does advise that he has been compliant with p.o. medications. However, I still see no change in his condition from admission. Mental Status Examination Appearance: Disheveled Consciousness: Alert, Highly distractible Orientation: Person, Place (Mental status limited by mental condition) Motor Activity: Normal gait Speech: Pressured, Rapid Language: Adequate Fund of Knowledge: Inadequate Attention and Concentration: Easily distracted Memory: Impaired Mood: Manic Affect: Other (expansive) Thought Process & Associations: Loose associations, Circumstantial, Tangential Thought Content: Other (Grandiose. Anabaptist preoccupation.) Hallucination Type: None Delusion Type: None Suicidal Ideation: No Suicidal Plan: No Suicidal Intention: No Homicidal Ideation: No Homicidal Plan: No Homicidal Intention: No Insight: Poor Judgment: Poor Assessment and Plan - Assessment (1) Bipolar disorder with severe lakshmi Code(s): F31.13 - Bipolar disorder, current episode manic without psychotic features, severe Status: Acute - Plan Plan: Patient will be reevaluated tomorrow by the attending psychiatrist. Continue with current treatment plan. Justification for Continued Inpatient Stay: Moving this patient to a less restrictive environment would likely result in decompensation. Request Healthcare Surrogate/Guardian Advocate?: Yes
--- NOTE | 2018-03-17 12:24 | P.PN ---
Subjective Interval history: Patient is seen ambulating in hallway. He does not wish to go to his room because he feels he is disturbing his roommate. Tells me he would like to have a " man" as a roommate because they "know how to do things". Continues to be very manic and disorganized in his thinking. Is intermittently agreeable to taking his medications. Denies any new complaints or concerns. Denies any chest pain or shortness of breath. Denies nausea vomiting or diarrhea. Tells me he is eating well because he must "fuel the body". Physical Exam Vital signs: Vital Signs 03/16/18 17:06 Temperature 98.8 F Pulse Rate 64 Respiratory Rate 16 Blood Pressure 141/69 H Pulse Oximetry 95 Intake & Output 03/16/18 03/17/18 03/17/18 18:59 06:59 18:59 Intake Total 720 / 720 1440 / 1440 960 / 960 Output Total 3 / 3 Balance 720 / 720 1437 / 1437 960 / 960 Intake: Oral 720 / 720 1440 / 1440 960 / 960 Output: Urine 3 / 3 Other: # Voids 4 Narrative: GENERAL: Well-nourished, well-developed adult male in no obvious distress. SKIN: Warm and dry. HEAD: Atraumatic. Normocephalic. CARDIOVASCULAR: Regular rate and rhythm. RESPIRATORY: No accessory muscle use. Clear to auscultation. Breath sounds equal bilaterally. GASTROINTESTINAL: Abdomen soft, non-tender, non-distended. Positive bowel sounds. MUSCULOSKELETAL: Extremities without clubbing, cyanosis, or edema. No obvious deformities. NEUROLOGICAL: Awake and alert. No obvious cranial nerve deficits. Motor grossly within normal limits. Normal speech. PSYCHIATRIC: Manic and restless; insight and judgment poor. Results - Labs CBC & Chem 7: 03/13/18 20:08 03/15/18 06:23 Laboratory Results - last 24 hr 03/15/18 06:23 Hemoglobin A1c 6.0 Assessment and Plan - Plan Patient is a 72-year-old male with a past history of hypertension and psychiatric problems who came to the hospital under [place] act for aggressive behavior. Initial blood pressure was noted to be systolic of 200. Psych The pt is under a [place] Act. - management per psych. Hypertensive urgency w/ diagnosis of chronic hypertension -BP now 140s-150s over 60s-70s with medication change. -Likely exacerbated by manic episode. - increased amlodipine from 2.5 mg daily to 10 mg daily on 03/14. - added lisinopril 10 mg daily on 03/14; blood pressure inadequately controlled so will increase to 20 mg starting 03/16. -Patient is periodically refusing medications or only taking half dose which is making management difficult. - Vasotec as needed. - heart healthy diet. Nicotine abuse The pt says he will quit smoking for a while on his birthday in [birth year]. He requests a nicotine patch. - smoking cessation instruction. - would hold off on nicotine patch until blood pressure is better controlled. HLP The pt states his cholesterol is well controlled with the statin, but he sometimes gets leg cramps. - resume home regimen. Thirst; resolved -A1c 6.0. Random glucose has been WNL. -Patient gives inconsistent history of diabetes -reporting that he is both prediabetic and not diabetic. PPx: Ambulation Discussed with: Patient and nurse Patient appears to be medically stable. [facility] will sign off. Please reconsult if needed.
--- NOTE | 2018-03-17 17:37 | P.CONPSY ---
Provisional Diagnosis Admission Date: March 14, 2018 11:33 [place] I.: 1. Bipolar disorder, presently manic, severe without psychosis 2. Cannabis abuse [place] II.: Deferred History of Present Illness Service: Psychiatry Consult date: 03/17/18 Requesting Physician: Dawson Falk Reason for Consult: Second opinion Primary Care Provider: UNKNOWN History of Present Illness: Patient is a 72 y/o man, domiciled alone, past psychiatric history of bipolar disorder, prior psychiatric admissions, who was brought in under [place] act by law enforcement alleging that law enforcement was called to a restaurant in response to the patient with having threatened to "beat the ass" of law enforcement which upon evaluation was noted to be acutely manic, delusional, irritable, which he was admitted to the inpatient psychiatry unit for further evaluation and management. Discussion with nursing staff reported that patient intrusive, walking into other patient's rooms and when redirected would become agitated. Patient was found ambulating on the unit, interviewed with nurse and medical students. Patient noted with pressured speech, tangential, religiously preoccupied, grandiose, with frequent derailment during interview. He states that he was brought in after an incident at a restaurant where he had become belligerent and brought in by law enforcement. He mentions that after his last admission at the [facility] he was told he did not need to take medications. He later asks to be kept here for months to years. He spends quite a bit of time speaking about his rene and how he was planning on hiring another patient as his set key driver. Patient is difficult to redirect during interview. [facility] - History History Provided By: Patient - Medical History Medical History: Medical History (Last Updated 03/14/18 @ 18:46 by Aba Lopez DO) Anxiety BPH (benign prostatic hyperplasia) Bipolar disorder Glaucoma High cholesterol Hypertension Marijuana abuse - Family History Family History: Family History (Last Updated 03/14/18 @ 18:47 by Aba Lopez DO) Other Patient denies significant medical history - Tobacco History Second Hand Smoke Exposure: Yes Tobacco Use In Past 30 Days: Yes Smoking Status: Heavy tobacco smoker Tobacco Type: Cigarettes, Pipe - Alcohol History How Often Do You Have a Drink Containing Alcohol: 4 or more times a week - Substance Use History Substance History: Active Abuse - Substance Use Type Marijuana Status: Active Route Used: Inhalation Reason for Use: Calm Down, Get High Comment: PATIENT SMOKES MARIJUANA A FEW TIMES A DAY AND AT BEDTIME TO HELP HIM SLEEP AND CONTROL THE SYMPTOMS OF HIS DISORDER PER PREVIOUS ADMISSION. - Travel History Recent Travel in the [place] Within the Last 8 Weeks: No Recent Travel Out of the Country Within the Last 8 Weeks: No Medications and Allergies Active Medications: Active Medications Al Hydrox/Mg Hydrox/Simethicone (Mag-Al Plus Susp Liq) 30 ml PO Q6H PRN PRN Reason: DYSPEPSIA Amlodipine Besylate (Norvasc) 10 mg PO DAILY [facility] Last Admin: 03/16/18 08:37 Dose: 10 mg Atorvastatin Calcium (Lipitor) 20 mg PO DAILY [facility] Last Admin: 03/16/18 08:37 Dose: 20 mg Divalproex Sodium (Depakote Er) 1,000 mg PO DAILY [facility] Last Admin: 03/16/18 08:39 Dose: 1,000 mg Enalaprilat (Vasotec Inj) 2.5 mg IV.PUSH Q6H PRN PRN Reason: SBP> OR = 180, DBP> OR = 100 Lisinopril (Prinivil) 20 mg PO DAILY [facility] Miscellaneous (Pill Splitter) 1 each OTHER UNSCH [facility] Neomycin/Polymyxin/Bacitracin (Neosporin Oint) 1 applicatio TOPICAL Q6H PRN PRN Reason: WOUND HEALING Last Admin: 03/15/18 00:04 Dose: 1 applicatio Nicotine (Habitrol 21 Mg Patch.24 Hr) 1 patch T-DERMAL DAILY [facility] Last Admin: 03/16/18 08:38 Dose: 1 patch Olanzapine (Zyprexa Inj) 5 mg IM Q12H PRN PRN Reason: SEE DOSE INSTRUCTIONS Patch Removal (Remove Old Patch) 1 each T-DERMAL DAILY [facility] Last Admin: 03/16/18 08:39 Dose: 1 each Risperidone (Risperdal M-Tab) 1 mg PO HS [facility] Risperidone (Risperdal M-Tab) 0.5 mg PO DAILY [facility] Allergies Allergy/AdvReac Type Severity Reaction Status Date / Time No Known Allergies Allergy Verified 03/14/18 12:42 Home Medications Medication Instructions Recorded Confirmed Type amlodipine 2.5 mg PO HS 03/14/18 03/14/18 History rosuvastatin 10 mg PO DAILY 03/14/18 03/14/18 History ziprasidone HCl [Geodon] 60 mg PO DAILY 03/14/18 03/14/18 History ziprasidone HCl [Geodon] 80 mg PO HS 03/14/18 03/14/18 History Exam Vital signs: Intake & Output 03/16/18 03/17/18 03/17/18 18:59 06:59 18:59 Intake Total 720 / 720 1440 / 1440 1919 Output Total Balance 720 / 720 1437 / 1437 1919 Intake: Oral 720 / 720 1440 / 1440 1919 Output: Urine Other: # Voids 4 Mental Status Examination Appearance: Disheveled Consciousness: Alert, Highly distractible Orientation: Person, Place (Mental status limited by mental condition) Motor Activity: Normal gait Speech: Pressured, Rapid Language: Adequate Fund of Knowledge: Inadequate Attention and Concentration: Easily distracted Memory: Impaired Mood: Angry, Manic Affect: Other (expansive) Thought Process & Associations: Loose associations, Circumstantial, Tangential Thought Content: Preoccupations, Other (Grandiose. Mandaeism preoccupation.) Hallucination Type: None Delusion Type: Other (grandiose) Suicidal Ideation: No Suicidal Plan: No Suicidal Intention: No Homicidal Ideation: No Homicidal Plan: No Homicidal Intention: No Insight: Poor Judgment: Poor Assessment and Plan - Assessment (1) Bipolar disorder, current episode manic without psychotic features, severe Code(s): F31.13 - Bipolar disorder, current episode manic without psychotic features, severe Status: Acute (2) Cannabis abuse Code(s): F12.10 - Cannabis abuse, uncomplicated Status: Acute - Plan Plan: I have seen and examined this patient, reviewed the documentation, and I agree and concur with Dr. Falk assessment and plan. Will increase risperidone to 0.5mg am/1mg HS and continue rest of medications. Continue to monitor mod and behavior. Discharge planning in progress. Justification for Continued Inpatient Stay: At risk for further decompensation if at lower level of care. Request Healthcare Surrogate/Guardian Advocate?: Yes
[2018-03-18] MEDS: Lisinopril 20 MG Tablet PO SCH (08:14)
[2018-03-18] MEDS: amLODIPine 10 MG Tablet PO SCH (08:15)
[2018-03-18] MEDS: Divalproex 500 MG ER Tablet PO SCH (08:16)
[2018-03-18] MEDS ORDERED: risperiDONE 0.5 MG ODT PO SCH (09:00)
--- NOTE | 2018-03-18 16:53 | P.PNPSY ---
Subjective Chief Complaint: Lakshmi Remarks: Patient seen for follow, chart reviewed. Discussion nursing staff reported the patient continues with pressured speech, and continues to be intrusive and going to other patient's rooms needing redirection. Patient was found heavily on the unit continues to noted to be labile with pressured speech stating that he had written a letter for the court so that he does not have explaining himself which was a document of multiple pages. He states having slept last night about 7 hours and that he had not slept this way since he was not child. Patient states "my life is easy" stating that he agrees with the medication but then contradicts himself later stating that he like to be manic and noted to be tangential during interview and disorganized. Review of Systems All other systems reviewed negative except as stated in HPI Mental Status Examination Appearance: Disheveled Consciousness: Alert, Highly distractible Orientation: Person, Place (Mental status limited by mental condition) Motor Activity: Normal gait Speech: Pressured, Rapid Language: Adequate Fund of Knowledge: Inadequate Attention and Concentration: Easily distracted Memory: Impaired Mood: Manic Affect: Other (expansive) Thought Process & Associations: Loose associations, Circumstantial, Tangential Thought Content: Preoccupations, Other (Grandiose. Muslim preoccupation.) Hallucination Type: None Delusion Type: Other (grandiose) Suicidal Ideation: No Suicidal Plan: No Suicidal Intention: No Homicidal Ideation: No Homicidal Plan: No Homicidal Intention: No Insight: Poor Judgment: Poor Assessment and Plan - Assessment (1) Bipolar disorder, current episode manic without psychotic features, severe Code(s): F31.13 - Bipolar disorder, current episode manic without psychotic features, severe Status: Acute (2) Cannabis abuse Code(s): F12.10 - Cannabis abuse, uncomplicated Status: Acute - Plan Plan: Patient this time continues with labile mood, pressured speech, disorganization and tangentiality, loosening associations, poor impulse control requiring redirection. We will continue to titrate risperidone to 1 mg p.o. twice daily, continue Depakote at 1000 mg at bedtime at rest of medications. We will continue to monitor mood and behavior. Discharge planning a progress. Justification for Continued Inpatient Stay: At risk for further decompensation if at lower level of care Request Healthcare Surrogate/Guardian Advocate?: Yes
[2018-03-18] MEDS: risperiDONE 1 MG ODT PO SCH (21:00)
[2018-03-19] MEDS ORDERED: risperiDONE 1 MG ODT PO SCH (09:00)
[2018-03-19] MEDS: Divalproex 500 MG ER Tablet PO SCH (09:00)
[2018-03-19] MEDS: Lisinopril 20 MG Tablet PO SCH (09:00)
[2018-03-19] MEDS: amLODIPine 10 MG Tablet PO SCH (09:00)
--- NOTE | 2018-03-19 13:00 | P.PNPSY ---
Subjective Chief Complaint: Lakshmi Remarks: Patient seen for follow, chart reviewed. Discussion nursing staff reported the patient continues with grandiose delusions, pressured speech, poor boundaries, intrusive and required redirection but no aggressive behavior recently and compliant with medications, patient slept last evening. Patient was found heavily on the unit seen with nurse, states that he slept last night for about 7 hours and that he had not slept this way since he was a child. Patient has scenario writer several other pages of written notes stating that he does journaling throughout the day and that is important to him. Patient reports adequate appetite, stated his mood is "I am of the creation, you cannot harm me". Patient continues with grandiose delusions as well as some adventist preoccupation. Patient agreed to continue treatment. Continues with disorganized tangentiality thought process. Patient denies any perceptual disturbances. Review of Systems All other systems reviewed negative except as stated in HPI Mental Status Examination Appearance: Disheveled Consciousness: Alert, Highly distractible Orientation: Person, Place (Mental status limited by mental condition) Motor Activity: Normal gait Speech: Pressured, Rapid Language: Adequate Fund of Knowledge: Inadequate Attention and Concentration: Easily distracted Memory: Impaired Mood: Manic Affect: Other (expansive) Thought Process & Associations: Loose associations, Circumstantial, Tangential Thought Content: Preoccupations, Other (Grandiose. Holiness preoccupation.) Hallucination Type: None Delusion Type: Other (grandiose) Suicidal Ideation: No Suicidal Plan: No Suicidal Intention: No Homicidal Ideation: No Homicidal Plan: No Homicidal Intention: No Insight: Poor Judgment: Poor Assessment and Plan - Assessment (1) Bipolar disorder, current episode manic without psychotic features, severe Code(s): F31.13 - Bipolar disorder, current episode manic without psychotic features, severe Status: Acute (2) Cannabis abuse Code(s): F12.10 - Cannabis abuse, uncomplicated Status: Acute - Plan Plan: Patient noted with slightly less pressured speech were continues with disorganization and tangentiality along with grandiose delusions. Patient continues with intrusiveness, require redirection on the unit. We will continue to titrate risperidone to 1 mg a.m/1.5 mg at bedtime with upper titration for mood stabilization, continue Depakote 1000 mg at bedtime we will order valproic acid at the appropriate time. We will continue to monitor mood and behavior. Discharge planning a progress. Justification for Continued Inpatient Stay: At risk for further decompensation if at lower level of care Request Healthcare Surrogate/Guardian Advocate?: Yes
[2018-03-19] MEDS: risperiDONE 0.5 MG ODT PO SCH (22:11)
[2018-03-20] MEDS: Divalproex 500 MG ER Tablet PO SCH ×2 (09:20→09:22)
[2018-03-20] MEDS: amLODIPine 10 MG Tablet PO SCH (09:21)
[2018-03-20] MEDS: risperiDONE 0.5 MG ODT PO SCH ×2 (09:21→21:00)
[2018-03-20] MEDS: Lisinopril 20 MG Tablet PO SCH (09:22)
--- NOTE | 2018-03-20 15:27 | P.PNPSY ---
Subjective Chief Complaint: Lakshmi Remarks: Patient seen for follow-up, chart reviewed. Discussion with nursing staff reported that the patient patient continued to be intrusive, slept partially through the evening. Patient presented to mental health court today which patient was requesting discharge but was retained to mental health court acreage reporter to continue inpatient stabilization. Patient noted during court hearing to be with continued pressured speech, flight of ideas, grandiose delusions, some irritability continues with poor insight into his illness. Review of Systems All other systems reviewed negative except as stated in HPI Mental Status Examination Appearance: Appropriate Consciousness: Alert, Highly distractible Orientation: Person, Place (Mental status limited by mental condition) Motor Activity: Normal gait Speech: Pressured Language: Adequate Fund of Knowledge: Inadequate Attention and Concentration: Easily distracted Memory: Impaired Mood: Manic Affect: Other (expansive) Thought Process & Associations: Loose associations, Circumstantial, Tangential Thought Content: Preoccupations, Other (Grandiose. Jew preoccupation.) Hallucination Type: None Delusion Type: Other (grandiose) Suicidal Ideation: No Suicidal Plan: No Suicidal Intention: No Homicidal Ideation: No Homicidal Plan: No Homicidal Intention: No Insight: Poor Judgment: Poor Assessment and Plan - Assessment (1) Bipolar disorder, current episode manic without psychotic features, severe Code(s): F31.13 - Bipolar disorder, current episode manic without psychotic features, severe Status: Acute (2) Cannabis abuse Code(s): F12.10 - Cannabis abuse, uncomplicated Status: Acute - Plan Plan: Patient continues with manic symptoms, pressured speech, disorganized thought processes, loosening of associations, grandiose delusions, irritability, racing thoughts. We will continue current treatment. We will increase risperidone to 1.5 mg p.o. twice daily, continue rest of medications will request Depakote level tomorrow morning prior to her first medication dose. We will continue to monitor mood and behavior. Discharge planning in progress. Justification for Continued Inpatient Stay: At risk for further decompensation if at lower level of care. Request Healthcare Surrogate/Guardian Advocate?: Yes
[2018-03-21] MEDS: Divalproex 500 MG ER Tablet PO SCH (08:11)
[2018-03-21] MEDS: Lisinopril 20 MG Tablet PO SCH (08:12)
[2018-03-21] MEDS: risperiDONE 0.5 MG ODT PO SCH ×2 (08:12→21:07)
[2018-03-21] MEDS: amLODIPine 10 MG Tablet PO SCH (08:12)
--- NOTE | 2018-03-21 11:26 | P.PNPSY ---
Subjective Chief Complaint: Lakshmi Remarks: Reviewed electronic medical records and discussed case with staff. Follow-up was conducted in the patient's room. His nurse reports that he has been compliant with medications and has recently started talking to her sister again. Patient was observed walking the halls. At follow-up he is found to remain floridly manic and intrusive. He does seem to perhaps be slightly more redirectable. He continues with an expansive mood stating that his sleep, appetite, and mood are all "wonderful". Mental Status Examination Appearance: Appropriate Consciousness: Alert, Highly distractible Orientation: Person, Place (Mental status limited by mental condition) Motor Activity: Normal gait Speech: Pressured Language: Adequate Fund of Knowledge: Inadequate Attention and Concentration: Easily distracted Memory: Impaired Mood: Manic Affect: Other (expansive) Thought Process & Associations: Loose associations, Circumstantial, Tangential Thought Content: Preoccupations, Other (Grandiose. Sabianism preoccupation.) Hallucination Type: None Delusion Type: Other (grandiose) Suicidal Ideation: No Suicidal Plan: No Suicidal Intention: No Homicidal Ideation: No Homicidal Plan: No Homicidal Intention: No Insight: Poor Judgment: Poor Assessment and Plan - Assessment (1) Bipolar disorder with severe lakshmi Code(s): F31.13 - Bipolar disorder, current episode manic without psychotic features, severe Status: Acute - Plan Plan: Patient will be reevaluated Saturday by the attending psychiatrist. Continue with current treatment plan. Justification for Continued Inpatient Stay: Moving this patient to a less restrictive environment would likely result in decompensation. Request Healthcare Surrogate/Guardian Advocate?: Yes
[2018-03-22] MEDS: amLODIPine 10 MG Tablet PO SCH (09:14)
[2018-03-22] MEDS: Lisinopril 20 MG Tablet PO SCH (09:14)
[2018-03-22] MEDS: Divalproex 500 MG ER Tablet PO SCH (09:14)
[2018-03-22] MEDS: risperiDONE 0.5 MG ODT PO SCH ×2 (09:15→20:12)
--- NOTE | 2018-03-22 18:17 | P.PNPSY ---
Subjective Chief Complaint: Lakshmi Remarks: Patient was seen and case discussed with nursing. Patient remains with various signs of lakshmi. He is hyperverbal, pressured, grandiose and religiously preoccupied. He is compliant with his medications. He has not had any outbursts Mental Status Examination Appearance: Appropriate Consciousness: Alert, Highly distractible Orientation: Person, Place (Mental status limited by mental condition) Motor Activity: Normal gait Speech: Pressured, Rapid Language: Adequate Fund of Knowledge: Inadequate Attention and Concentration: Easily distracted Memory: Impaired Mood: Manic Affect: Other (expansive) Thought Process & Associations: Loose associations, Circumstantial, Tangential Thought Content: Preoccupations, Other (Grandiose. Taoist preoccupation.) Hallucination Type: None Delusion Type: Other (grandiose) Suicidal Ideation: No Suicidal Plan: No Suicidal Intention: No Homicidal Ideation: No Homicidal Plan: No Homicidal Intention: No Insight: Poor Judgment: Poor Assessment and Plan - Assessment (1) Bipolar disorder, current episode manic without psychotic features, severe Code(s): F31.13 - Bipolar disorder, current episode manic without psychotic features, severe Status: Acute (2) Cannabis abuse Code(s): F12.10 - Cannabis abuse, uncomplicated Status: Acute - Plan Plan: Continue current treatment plan Justification for Continued Inpatient Stay: Patient would decompensate in a less restrictive setting Request Healthcare Surrogate/Guardian Advocate?: Yes
[2018-03-23] MEDS: amLODIPine 10 MG Tablet PO SCH (08:44)
[2018-03-23] MEDS: Lisinopril 20 MG Tablet PO SCH (08:44)
[2018-03-23] MEDS: Divalproex 500 MG ER Tablet PO SCH (08:45)
[2018-03-23] MEDS: risperiDONE 0.5 MG ODT PO SCH ×2 (08:45→21:48)
--- NOTE | 2018-03-23 16:14 | P.PNPSY ---
Subjective Chief Complaint: Lakshmi Remarks: Patient was seen and case discussed with nursing. Patient remains with various signs of lakshmi. He is pressured, hyperverbal, excess energy with flight of ideas. He is excited about moving down to a different unit. Compliant with his medications and has not had any outbursts. No delusions or hallucinations are noted. Denies suicidal or homicidal ideation intent or PLAN Mental Status Examination Appearance: Appropriate Consciousness: Alert, Highly distractible Orientation: Person, Place (Mental status limited by mental condition) Motor Activity: Normal gait Speech: Pressured, Rapid Language: Adequate Fund of Knowledge: Inadequate Attention and Concentration: Easily distracted Memory: Impaired Mood: Manic Affect: Other (expansive) Thought Process & Associations: Loose associations, Circumstantial, Tangential Thought Content: Preoccupations, Other (Grandiose. Latter Day preoccupation.) Hallucination Type: None Delusion Type: Other (grandiose) Suicidal Ideation: No Suicidal Plan: No Suicidal Intention: No Homicidal Ideation: No Homicidal Plan: No Homicidal Intention: No Insight: Poor Judgment: Poor Assessment and Plan - Assessment (1) Bipolar disorder, current episode manic without psychotic features, severe Code(s): F31.13 - Bipolar disorder, current episode manic without psychotic features, severe Status: Acute (2) Cannabis abuse Code(s): F12.10 - Cannabis abuse, uncomplicated Status: Acute - Plan Plan: Continue current treatment plan Justification for Continued Inpatient Stay: Patient would decompensate in a less restrictive setting Request Healthcare Surrogate/Guardian Advocate?: Yes
[2018-03-24] MEDS: Divalproex 500 MG ER Tablet PO SCH (09:11)
[2018-03-24] MEDS: risperiDONE 0.5 MG ODT PO SCH (09:12)
[2018-03-24] MEDS: Lisinopril 20 MG Tablet PO SCH (09:12)
[2018-03-24] MEDS: amLODIPine 10 MG Tablet PO SCH (09:12)
--- NOTE | 2018-03-24 15:45 | P.PNPSY ---
Subjective Chief Complaint: Lakshmi Remarks: Patient seen for follow, chart reviewed. Discussion nursing staff reported patient continues to be intrusive, grandiose, but no aggressive behavior. Patient was found ambulating on the unit noted B, cooperative. Patient continues with some pressured speech but less intense, continues with grandiose delusions as well as religiously preoccupied at times. Patient was browsing a, anxiety and stated that he is too old majority of these cars that was shown on the eye exam. Patient states that his weekend went "wonderful" reports having slept last evening patient.. Patient reports having been reconciling with his sister who lives in [place] and plans on returning to [place] at some point. Patient denies any auditory or visual hallucinations. Patient denies any SI or HI. Review of Systems All other systems reviewed negative except as stated in HPI Mental Status Examination Appearance: Appropriate Consciousness: Alert, Highly distractible Orientation: Person, Place (Mental status limited by mental condition) Motor Activity: Normal gait Speech: Pressured (Lessening) Language: Adequate Fund of Knowledge: Inadequate Attention and Concentration: Easily distracted Memory: Impaired Mood: Manic Affect: Other (expansive) Thought Process & Associations: Loose associations, Circumstantial, Tangential Thought Content: Preoccupations, Other (Grandiose. Hinduism preoccupation.) Hallucination Type: None Delusion Type: Other (grandiose) Suicidal Ideation: No Suicidal Plan: No Suicidal Intention: No Homicidal Ideation: No Homicidal Plan: No Homicidal Intention: No Insight: Poor Judgment: Poor Assessment and Plan - Assessment (1) Bipolar disorder, current episode manic without psychotic features, severe Code(s): F31.13 - Bipolar disorder, current episode manic without psychotic features, severe Status: Acute (2) Cannabis abuse Code(s): F12.10 - Cannabis abuse, uncomplicated Status: Acute - Plan Plan: Patient continues with grandiosity, intrusive behavior which needs redirection, noted with less pressured speech continues to have some tangentiality. We will increase risperidone to 1.5 mg a.m./2 mg at bedtime along with continued medications for mood stabilization. We will continue to monitor mood and behavior. Discharge planning a progress. Justification for Continued Inpatient Stay: At risk for further decompensation if at lower level of care Request Healthcare Surrogate/Guardian Advocate?: Yes
[2018-03-24] MEDS: risperiDONE 2 MG ODT PO SCH (21:24)
[2018-03-25] MEDS: Lisinopril 20 MG Tablet PO SCH (09:40)
[2018-03-25] MEDS: Divalproex 500 MG ER Tablet PO SCH (09:42)
[2018-03-25] MEDS: risperiDONE 0.5 MG ODT PO SCH (09:43)
[2018-03-25] MEDS: amLODIPine 10 MG Tablet PO SCH (10:02)
--- NOTE | 2018-03-25 15:40 | P.PNPSY ---
Subjective Chief Complaint: Lakshmi Remarks: Patient seen for follow up; chart reviewed. Discussion with nursing staff reported patient calm this morning. Patient was found ambulating on unit noted to be calm, cooperative. Patient states that he had been feeling "just fine" and that he had slept better last evening, with adequate appetite. 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 He states that he has been in contact with a sister and that he is recently reconciling reconnecting with her and that he plans to go to visit her and [place] but states that he is planning to come back to [facility] and continue to work on his properties and stay at the comfort and which he states had been staying there for quite some time. Denies any any perceptual disturbances. Review of Systems All other systems reviewed negative except as stated in HPI Mental Status Examination Appearance: Appropriate Consciousness: Alert Orientation: Person, Place (Mental status limited by mental condition) Motor Activity: Normal gait Speech: Pressured (Lessening) Language: Adequate Fund of Knowledge: Inadequate Attention and Concentration: Easily distracted Memory: Impaired Mood: Good Affect: Other (expansive) Thought Process & Associations: Circumstantial (lessening), Tangential ( lessening) Thought Content: Preoccupations (with continuing his "ministry"), Other ( Grandiose. Hoahaoism preoccupation but lessening.) Hallucination Type: None Delusion Type: Other (grandiose) Suicidal Ideation: No Suicidal Plan: No Suicidal Intention: No Homicidal Ideation: No Homicidal Plan: No Homicidal Intention: No Insight: Poor Judgment: Poor Assessment and Plan - Assessment (1) Bipolar disorder, current episode manic without psychotic features, severe Code(s): F31.13 - Bipolar disorder, current episode manic without psychotic features, severe Status: Acute (2) Cannabis abuse Code(s): F12.10 - Cannabis abuse, uncomplicated Status: Acute - Plan Plan: Patient appears to be improving with less labile mood, less pressured speech, although continues with grandiose statements and ideas patient no longer noted to be irritable and having more appropriate responses during interview. We will continue current treatment. We will continue to monitor mood and behavior. Discharge planning in progress. Justification for Continued Inpatient Stay: At risk for further decompensation if at lower level of care. Request Healthcare Surrogate/Guardian Advocate?: Yes
[2018-03-25] MEDS: risperiDONE 2 MG ODT PO SCH (21:32)
[2018-03-26] MEDS: Lisinopril 20 MG Tablet PO SCH (08:51)
[2018-03-26] MEDS: amLODIPine 10 MG Tablet PO SCH (08:51)
[2018-03-26] MEDS: Divalproex 500 MG ER Tablet PO SCH (08:52)
[2018-03-26] MEDS: risperiDONE 0.5 MG ODT PO SCH (08:55)
[2018-03-26] MEDS ORDERED: risperiDONE Extended Release Inj 25 MG/2 ML Syringe IM ONE (10:59)
--- NOTE | 2018-03-26 11:08 | P.PNPSY ---
Subjective Chief Complaint: Lakshmi Remarks: Patient seen for follow, chart reviewed. Discussion nursing staff reported the patient continues to have some intrusive but redirectable, compliant with treatment. Patient was found participating in group activity outside, noted to be calm and cooperative, seen with nurse. Patient states that he is feeling "just fine" reports sleeping well, with adequate appetite, mood has been "ecstatic", and tolerating medications well. Patient states that he spoke with his sister this morning and was told that she will be going out of town and therefore he plans on just remaining in [facility]. Patient states that he is planning to go to either the comfort and or to the [place] property that he owns. Patient agrees to long-acting injectable after medication was reviewed with patient. Discussion of importance of adherence to treatment as well as to follow appointments was reviewed which she acknowledged and plans on doing so upon discharge. Review of Systems All other systems reviewed negative except as stated in HPI Mental Status Examination Appearance: Appropriate Consciousness: Alert Orientation: Person, Place (Mental status limited by mental condition) Motor Activity: Normal gait Speech: Pressured (Lessening) Language: Adequate Fund of Knowledge: Inadequate Attention and Concentration: Easily distracted Memory: Impaired Mood: Good Affect: Other (expansive) Thought Process & Associations: Intact, Circumstantial (At times) Thought Content: Delusional (Continues with some grandiosity but less intense now), Other (Less flight of ideas) Hallucination Type: None Delusion Type: Other (grandiose but lessening) Suicidal Ideation: No Suicidal Plan: No Suicidal Intention: No Homicidal Ideation: No Homicidal Plan: No Homicidal Intention: No Insight: Poor (Improving) Judgment: Poor Assessment and Plan - Assessment (1) Bipolar disorder, current episode manic without psychotic features, severe Code(s): F31.13 - Bipolar disorder, current episode manic without psychotic features, severe Status: Acute (2) Cannabis abuse Code(s): F12.10 - Cannabis abuse, uncomplicated Status: Acute - Plan Plan: Patient currently with continued pressured speech but less intense, now able to interact more appropriately during conversation, continues to have some 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 intake. We will increase risperidone to 2 mg p.o. twice daily, we will start long acting injectable of Risperdal Consta 25 mg IM with possible titration upon follow-up on an outpatient basis. We will continue rest of medications. We will continue to monitor mood and behavior. The patient continues to improve possible discharge by the end of the week. Justification for Continued Inpatient Stay: At risk for further decompensation if at lower level of care. Request Healthcare Surrogate/Guardian Advocate?: Yes
[2018-03-26] MEDS: risperiDONE 2 MG ODT PO SCH (21:00)
[2018-03-27] MEDS: Lisinopril 20 MG Tablet PO SCH (08:50)
[2018-03-27] MEDS: amLODIPine 10 MG Tablet PO SCH (08:50)
[2018-03-27] MEDS: Divalproex 500 MG ER Tablet PO SCH (17:04)
[2018-03-27] MEDS: risperiDONE 2 MG ODT PO SCH ×2 (17:06→21:11)
--- NOTE | 2018-03-27 18:12 | P.PNPSY ---
Subjective Chief Complaint: Lakshmi Remarks: Patient seen for follow-up, chart reviewed. Discussion with nursing staff reported that the patient had refused his risperidone morning believing that he longer needed to take p.o. medicines after he had receive long-acting injectable. Patient was found family on unit noted to be social with other peers. Patient was cooperative with interview stating that he plans on staying at the comfort and upon discharge as he has been stated previously. Patient states that he plans on continue treatment as he feels "more organized" to focus on his goals and plans to refrain from marijuana use and continue outpatient mental health follow-up. Patient denies any perceptional services or delusions although continues to have grandiose ideas and noted be less intense. Patient was provided with review of treatment plan which includes continued p.o. medications for 2 weeks until his next long-acting injection dose. Review of Systems All other systems reviewed negative except as stated in HPI Mental Status Examination Appearance: Appropriate Consciousness: Alert Orientation: Person, Place (Mental status limited by mental condition), Date/ Time Motor Activity: Normal gait Speech: Unremarkable Language: Adequate Fund of Knowledge: Inadequate Attention and Concentration: Easily distracted Memory: Impaired Mood: Good Affect: Other (expansive) Thought Process & Associations: Intact, Circumstantial (At times) Thought Content: Delusional (less grandiose) Hallucination Type: None Delusion Type: Other (grandiose but lessening) Suicidal Ideation: No Suicidal Plan: No Suicidal Intention: No Homicidal Ideation: No Homicidal Plan: No Homicidal Intention: No Insight: Fair (Improving) Judgment: Impulsive Assessment and Plan - Assessment (1) Bipolar disorder, current episode manic without psychotic features, severe Code(s): F31.13 - Bipolar disorder, current episode manic without psychotic features, severe Status: Acute (2) Cannabis abuse Code(s): F12.10 - Cannabis abuse, uncomplicated Status: Acute - Plan Plan: Patient continues to show improvement in mood although continued to be slightly grandiose but more organized, much improved speech and able to be interjected during interview. We will continue current treatment. We will continue to monitor mood and behavior. Patient like for discharge tomorrow with outpatient follow-up arranged by counselors. Justification for Continued Inpatient Stay: At risk for further decompensation if at lower level of care. Request Healthcare Surrogate/Guardian Advocate?: Yes
[2018-03-28] MEDS: Divalproex 500 MG ER Tablet PO SCH (08:34)
[2018-03-28] MEDS: risperiDONE 2 MG ODT PO SCH (08:36)
[2018-03-28] MEDS: Lisinopril 20 MG Tablet PO SCH (08:37)
[2018-03-28] MEDS: amLODIPine 10 MG Tablet PO SCH (08:37)
--- NOTE | 2018-03-28 22:30 | P.DSPSY ---
Psychiatry Discharge Summary Inpatient Psychiatric care?: Yes Advance Directives: No Mental Health Advance Directive: No Health Care Proxy: No - Admission Admission Date: March 14, 2018 11:33 - Admission Diagnosis (1) Bipolar disorder, current episode manic without psychotic features, severe Code(s): F31.13 - Bipolar disorder, current episode manic without psychotic features, severe Brief History: Mr. Stewart is a 72-year-old male with a history of bipolar disorder and cannabis use issues who presents under a E[place] act by law enforcement alleging that law enforcement was called to a restaurant in response to the patient. Patient allegedly threatened to "beat the ass" of law enforcement. Reviewing the electronic medical record, I note that the patient was hospitalized in September of this year under Dr. Housotn for a manic episode. Patient seen and examined with nurse, Tee. Chart reviewed. Case discussed with nursing staff. Per nursing staff, patient was quite angry and irritable yesterday, although he is more ebullient and expansive today. I find the patient standing at the nursing station rambling to no one in particular. He says "I have always been manic." He rambles about cell phones and porn. He has a confucianist preoccupation and says that we are both "men of the cloth." He talks about owning properties on several different [place] in [place]. This may be reality based. He also says that he plans to buy 100 cabins to house the mentally ill. He has a distinct irritable edge and says that he might act out violently here so that we "keep me for a month." He also talks about having an "anger mode" where he lashes out physically. He says that the family members of politicians like the governor [facility] have been messing up the waterways that his properties lie on, and he threatens to injure these individuals with a gun or hatchet. His speech is pressured and quite difficult to interrupt. He is distractible. He is intrusive and impulsive. He is floridly manic. Psychiatric interview is limited because of patient's degree of psychiatric symptomatology. The remainder of the psychiatric ROS is negative. Past psychiatric history: Patient is likely a very unreliable historian. 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 He says that his most recent psychiatric admission was at the [facility] several months ago. Family history: The patient reports that his son completed suicide 7 years ago. Chemical dependency history: The patient reports that he drinks only one [place] Light with [place] daily. He says that he has a complicated ritual involved with drinking this beverage. Social history: The patient reports that he attended the [employer] for [employer]. He says that his grandfather owned the [employer]. He attended [employer] in [facility]. 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 He is . In light of patient's degree of psychiatric impairment, I have reached out to Clare Serrano [phone] for collateral information. She is patient's ex-. She notes that the was finalized on Saturday of last week. She says that he has been experiencing "evil and hateful" manic episodes every 6 months for the last few years and she could not tolerate it anymore, and this is why she had to divorce him. Even though they are , he maintains telephone contact with Ms. Serrano and is reportedly quite verbally abusive on the phone. Ms. Mann points me in the direction of patient's sister Ros Willoughby to serve as HCS. Called sister Ms. Ros Bhakta [phone]. She is willing to act as HCS. R/ B/A for meds discussed with her, and she provides consent for meds as outlined below. She requests that we NOT contact Ms. Serrano going forward, and I have placed a nursing order to this effect. Tobacco Use In Past 30 Days: Yes How Often Do You Have a Drink Containing Alcohol: 4 or more times a week Hospital Course: Patient is a 72 y/o man, domiciled alone, past psychiatric history of bipolar disorder, prior psychiatric admissions, who was brought in under [place] act by law enforcement alleging that law enforcement was called to a restaurant in response to the patient with having threatened to "beat the ass" of law enforcement which upon evaluation was noted to be acutely manic, delusional, irritable, which he was admitted to the inpatient psychiatry unit for further evaluation and management. Patient continued on Depakote 1000mg daily (VPA level within therapeutic limits), risperidone and titrated to 2mg PO BID and provided with Risperidal Consta IRAHETA of 37.5mg IM x 1 and titrated to 300mg PO BID with lithium level within therapeutic limits, sertraline 50mg PO daily and continued on medications for chronic medical conditions which he tolerated well with no notable adverse drug reactions. Patient was noted with improvement in mood although had continued minimal pressured speech, continued to have some degree of intrusiveness but more redirectable throughout admission noted to have denied having any suicidal or homicidal ideations since admission. He was observed by staff to not have had any behavioral disturbances, not having made any suicidal or homicidal statements and maintained stable mood through admission and was noted to participate with staff adequately. Patient was noted to participate in self care, engaging with staff and maintaining adequate hygiene. 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 Patient was counseled on importance of abstinence from marijuana use which he acknowledged and agreed to remain sober from this. Treatment team was able to set up outpatient follow up appointments which the patient can continue current medication regimen. Upon discharge patient stated that he was feeling great, reported feeling well with the treatment, as well as motivation to continue recommendations and denied any SI, HI, perceptual disturbances or delusions. Weighing the acute, chronic, and protective factors and based on the available evidence, I superior court judge to a reasonable degree of medical certainty that the patient is at low imminent risk of harm to self or others from a mental illness as defined under the Egan act and his level of function is adequate as observed on the unit for planned level of outpatient care. Patient was counseled regarding warning signs for need to return to the psychiatric emergency room as part of a general safety plan. Patient advised to call 911 or go nearest ED in case of emergency. Patient agreed with plan. - Discharge Discharge Date: 03/28/18 - Discharge Diagnosis (1) Bipolar disorder, current episode manic without psychotic features, severe Code(s): F31.13 - Bipolar disorder, current episode manic without psychotic features, severe Status: Acute Discharge Disposition: Home - Discharge Instructions Discharge Diet: Heart Healthy Diet Activities You Can Perform: Regular- No Restrictions - Discharge Time > 30 minutes Mental Status Examination Appearance: Appropriate Consciousness: Alert Orientation: Person, Place (Mental status limited by mental condition), Date/ Time Motor Activity: Normal gait Speech: Unremarkable Language: Adequate Fund of Knowledge: Inadequate Attention and Concentration: Easily distracted Memory: Impaired Mood: Good Affect: Appropriate Thought Process & Associations: Intact Thought Content: Appropriate Hallucination Type: None Delusion Type: None Suicidal Ideation: No Suicidal Plan: No Suicidal Intention: No Homicidal Ideation: No Homicidal Plan: No Homicidal Intention: No Insight: Fair Judgment: Impulsive Discharge/Advance Care Plan - Results Vital Signs: Last Vital Signs Temp 98.0 F 03/28/18 05:45 Pulse 60 03/28/18 05:45 Resp 16 03/28/18 05:45 BP 154/76 H 03/28/18 05:45 Pulse Ox 99 03/28/18 05:45 Lab Results: Laboratory Results Hemoglobin A1c 6.0 % (4.3-6.0) 03/15/18 06:23 Triglycerides 113 mg/dL (42-150) 03/15/18 06:23 Cholesterol 138 mg/dL (120-200) 03/15/18 06:23 LDL Cholesterol, Calc 58 mg/dL (0-99) 03/15/18 06:23 HDL Cholesterol 57.8 mg/dL (40.0-60.0) 03/15/18 06:23 TSH 0.949 uIU/mL (0.358-3.740) 03/13/18 20:08 Valproic Acid 76 mcg/mL (50-100) 03/21/18 08:37 Summary of Procedures: none Pending Results: None - Medications Number of antipsychotic medications at discharge: 1 - Discharge Care Plan Goals to Promote Your Health: * To prevent worsening of your condition and complications * To maintain your health at the optimal level Directions to Meet Your Goals: Take your medications as prescribed Follow your dietary instruction Follow activity as directed Keep your appointments as scheduled Take your immunizations and boosters as scheduled If your symptoms worsen call your PCP, if no PCP go to Urgent Care Center or Emergency Room For 18/03 questions related to your inpatient stay or results of tests pending at discharge, please contact Dr. Newton Zapata MD at Smoking is Dangerous to Your Health. Avoid second hand smoking
== END 2018-03-28 12:50 | disposition home or self-care (01) ==
LOC: NEDAMB 19:41 → NEDA 03-14 11:33 → H4EA 03-14 13:12 → H260 03-23 16:51
PROVIDERS: ADMIT Student in an Organized Health Care Education/Training Program; ATTEND Student in an Organized Health Care Education/Training Program